=== PATIENT | male | born 1985 | race Caucasian/White ===

== ENCOUNTER 2016-05-23 07:53 | Day surgery (SDC) | payer OTHER ==
[~2016-05-23] VITALS: Ht 175.3 cm; Wt 83.9 kg
[~2016-05-23 07:53] MED LIST: ADDERALL10 M1 PO; ALEVE220 M2 PO; AMBIEN CR12.5 MG PO; APIDRA100 UNIT/1 IL; AUGMENTIN875 MG PO; AZO CRANBERRY1 EAC1 PO; CATAPRES0.1 MG PO; CHANTIX1 EACH PO; CLEOCIN300 MG PO; CLONIDINE HCL0.1 MG PO; DILAUDID2 MG PO; DILAUDID4 MG PO; GABAPENTIN600 MG PO; HUMALOG100 UNIT/1 SC; IBUPROFEN600 MG PO; INDOCIN25 MG PO; INDOMETHACIN50 MG PO; INSULIN PUMP SCCONT; LEVOFLOXACIN750 MG PO; LIPITOR5 MG PO; Levaquin PO; MOTRIN400 MG PO; NEURONTIN300 MG PO; NEURONTIN600 MG PO; NEURONTIN800 MG PO; NORCO 7.5/321 TABLET PO; NUCYNTA50 MG PO; NUCYNTA75 MG PO; OMNIPOD1 EACH SQ; OPANA ER20 MG PO; OXYCODONE HCL10 MG PO; OXYCODONE HCL15 MG PO; OXYCODONE HCL20 M1 PO; OXYCODONE HCL30 MG PO; OXYCONTIN20 MG PO; OXYMORPHONE HCL30 MG PO; PERCOCET 5/31 TABLET PO; PHENERGAN12.5 M1 PO; PROTONIX40 MG PO; RAMIPRIL1.25 MG PO; ROXICET 5-3251 EACH PO; ROXICODONE5 MG; TRAMADOL HCL50 MG PO; WELLBUTRIN SR200 MG PO; WELLBUTRIN XL150 MG PO; WELLBUTRIN XL300 MG PO; ZOFRAN ODT4 MG PO
[2016-05-23 08:38] VITALS: BP 132/88
[2016-05-23 08:43] LABS: POINT-OF-CARE METER ID UU14174212
[2016-05-23 09:13] LABS: POINT-OF-CARE METER ID UU14174212
[2016-05-23 10:51] LABS: POINT-OF-CARE METER ID UU13113675; POINT-OF-CARE USER ID 515036437
[2016-05-23 11:04] VITALS: BP 138/91
== END 2016-05-23 11:17 | disposition home or self-care (01) ==
LOC: SDC
PROVIDERS: Internal Medicine
PROC: 08B53ZZ Excision of Left Vitreous, Percutaneous Approach (ICD-10-PCS; principal; 2016-05-23)
DX: E10.3592 Type 1 diabetes mellitus with proliferative diabetic retinopathy without macular edema, left eye (principal); E78.5 Hyperlipidemia, unspecified; F17.200 Nicotine dependence, unspecified, uncomplicated; F11.21 Opioid dependence, in remission; Z82.49 Family history of ischemic heart disease and other diseases of the circulatory system; Z83.3 Family history of diabetes mellitus; Z80.6 Family history of leukemia; Z82.61 Family history of arthritis; Z88.5 Allergy status to narcotic agent; Z88.8 Allergy status to other drugs, medicaments and biological substances
CPT/HCPCS: 82948; J0330; J0690; J2250; J2405; J3010; J3300

== ENCOUNTER 2016-06-15 15:19 | Emergency (ER) | payer OTHER ==
[~2016-06-15] VITALS: Ht 175.3 cm; Wt 83.8 kg
[2016-06-15 15:34] LABS: POINT-OF-CARE METER ID UU13113800
[2016-06-15 15:58] LABS: HEMATOCRIT 43.3 % (38.0-50.0); MCH 29.2 PG (29.0-34.0); MCHC 33.9 G/DL (30.0-36.0); MCV 86.1 FL (86-99); MEAN PLAT.VOLUME 9.7 uM^3 (9.0-12.4); PLATELET COUNT 397 K/uL (156-360); RBC DIS.WIDTH-CV 12.9 % (11.8-14.6); RED BLOOD COUNT 5.03 M/uL (4.00-5.50)
[2016-06-15 16:13] LABS: CHLORIDE 109 mEq/L (99-109); POTASSIUM 3.8 mEq/L (3.7-5.4); SODIUM 139 mEq/L (136-147)
[2016-06-15 16:16] LABS: ANION GAP 8 MEQ/L (2-14)
[2016-06-15 16:17] LABS: TOTAL BILIRUBIN 0.6 mg/dL (0.0-1.0)
[2016-06-15 16:19] LABS: ALKALINE PHOSPHATASE 81 IU/L (3-129); GFR ESTIMATE (CALCULATED) > 59 mL/min/
[2016-06-15 16:20] LABS: UREA NITROGEN (BUN) 14 mg/dL (9-23)
[2016-06-15 17:09] LABS: POINT-OF-CARE METER ID UU13113800; POINT-OF-CARE USER ID 608261302
[2016-06-15 17:20] LABS: GLUCOSE 36 mg/dL (70-99)
[2016-06-15 18:07] LABS: ADD MIUA? YES; BILIRUBIN NEGATIVE; BLOOD NEGATIVE; COLOR YELLOW ((YELLOW)); GLUCOSE (STRIP) >=500; KETONES NEGATIVE; LEUKOCYTES NEGATIVE; NITRITE NEGATIVE; PROTEIN (STRIP) 100; SPECIFIC GRAVITY 1.014 (1.000-1.030); UROBILINOGEN 0.2 MG/DL (0.2-1.0)
[2016-06-15 18:18] LABS: BACTERIA NONE SEEN /HPF; EPITHELIAL CELLS RARE /HPF; MUCUS TRACE /LPF; RED BLOOD CELLS 0-5 /HPF (0-5); UCUL ADDED? NO; WHITE BLOOD CELLS 0-5 /HPF (0-5)
[2016-06-15 18:19] LABS: AMPHETAMINE NEGATIVE (500 ng/mL); BARBITURATES NEGATIVE (200 ng/mL); BENZODIAZEPINES NEGATIVE (150 ng/mL); COCAINE NEGATIVE (150 ng/mL); METHADONE NEGATIVE (200 ng/mL); METHAMPHETAMINE NEGATIVE (500 ng/mL); OPIATES (MORPHINE) NEGATIVE (100 ng/mL); OXYCODONE PRESUMPTIVE POSITIVE (100 ng/mL); PHENCYCLIDINE NEGATIVE (25 ng/mL); PROPOXYPHENE NEGATIVE (300 ng/mL); THC CANNABINOIDS NEGATIVE (50 ng/mL); TRICYCLIC ANTIDEPRESSANTS PRESUMPTIVE POSITIVE (300 ng/mL)
[2016-06-15 18:20] LABS: INTERNAL CONTROLS VALID? YES
[2016-06-15] MEDS ORDERED: ZOFRAN4 MG PO (18:30)
[2016-06-15 18:43] VITALS: BP 128/87
[2016-06-15 18:45] LABS: POINT-OF-CARE METER ID UU13113800
== END 2016-06-15 18:49 | disposition home or self-care (01) ==
LOC: RME 15:19 → EME 15:19 → RME 18:49
PROVIDERS: Physician Assistant
DX: E11.649 Type 2 diabetes mellitus with hypoglycemia without coma (principal); Z79.4 Long term (current) use of insulin; Z88.6 Allergy status to analgesic agent; F17.200 Nicotine dependence, unspecified, uncomplicated
CPT/HCPCS: 80053; 81003; 82010; 82948; 85027; 99281; 99285; J2405

== ENCOUNTER 2016-09-09 22:26 | Inpatient (IN) | payer OTHER ==
[~2016-09-09] VITALS: Ht 172.7 cm; Wt 80.2 kg
[~2016-09-09 22:26] MED LIST changes: +ZOFRAN4 MG PO
[2016-09-09 23:02] LABS: HEMATOCRIT 40.2 % (38.0-50.0); MCH 28.9 PG (29.0-34.0); MCHC 33.8 G/DL (30.0-36.0); MCV 85.4 FL (86-99); MEAN PLAT.VOLUME 9.8 uM^3 (9.0-12.4); PLATELET COUNT 342 K/uL (156-360); RBC DIS.WIDTH-CV 12.6 % (11.8-14.6); RBC DIS.WIDTH-SD 39.2 % (39-53); RED BLOOD COUNT 4.71 M/uL (4.00-5.50)
[2016-09-09 23:11] LABS: CHLORIDE 105 mEq/L (99-109); POTASSIUM 4.3 mEq/L (3.7-5.4); SODIUM 141 mEq/L (136-147)
[2016-09-09 23:13] LABS: GLUCOSE 42 mg/dL (70-99)
[2016-09-09 23:14] LABS: ANION GAP 8 MEQ/L (2-14)
[2016-09-09 23:16] LABS: GFR ESTIMATE (CALCULATED) > 59 mL/min/; SERUM ETHYL ALCOHOL < 10 mg/dL
[2016-09-09 23:17] LABS: UREA NITROGEN (BUN) 12 mg/dL (9-23)
[2016-09-09 23:57] LABS: POINT-OF-CARE METER ID UU13113702
[2016-09-10 00:05] LABS: POINT-OF-CARE METER ID UU13113702
[2016-09-10 01:40] LABS: POINT-OF-CARE METER ID UU13113702
[2016-09-10] MEDS ORDERED: ALPRAZOLAM0.25 M2 PO (02:05)
[2016-09-10] MEDS ORDERED: BUPROPION XL300 MG PO (02:06)
[2016-09-10] MEDS ORDERED: ESCITALOPRAM OX20 MG PO (02:06)
[2016-09-10] MEDS ORDERED: OXYCODONE HCL30 MG PO (02:07)
[2016-09-10 06:37] LABS: POINT-OF-CARE METER ID UU13113830
[2016-09-10 08:01] VITALS: BP 90/54
[2016-09-10 11:38] VITALS: BP 119/66
[2016-09-10 12:24] LABS: POINT-OF-CARE METER ID UU14100415
[2016-09-10 16:06] VITALS: BP 92/52
[2016-09-10 16:34] LABS: POINT-OF-CARE METER ID UU14188576
[2016-09-10 21:10] LABS: POINT-OF-CARE METER ID UU14188576; POINT-OF-CARE USER ID BHSMEW
[2016-09-10 21:51] LABS: POINT-OF-CARE METER ID UU14188576; POINT-OF-CARE USER ID BHSMEW
[2016-09-11 05:59] LABS: POINT-OF-CARE METER ID UU14188576
[2016-09-11 07:22] VITALS: BP 113/67
[2016-09-11 10:38] LABS: POINT-OF-CARE METER ID UU14188576
[2016-09-11 15:54] VITALS: BP 123/76
[2016-09-11 17:00] LABS: POINT-OF-CARE METER ID UU14188576; POINT-OF-CARE USER ID BHSMEW
[2016-09-11 20:38] LABS: POINT-OF-CARE METER ID UU14188576; POINT-OF-CARE USER ID BHSMEW
[2016-09-12 00:59] LABS: POINT-OF-CARE METER ID UU14188576; POINT-OF-CARE USER ID BHSCRC
[2016-09-12 06:25] LABS: POINT-OF-CARE METER ID UU14188576
[2016-09-12 07:35] VITALS: BP 107/61
[2016-09-12 09:46] LABS: POINT-OF-CARE METER ID UU14188576; POINT-OF-CARE USER ID BHSCRC
[2016-09-12 10:18] LABS: POINT-OF-CARE METER ID UU13113702
[2016-09-12 15:14] VITALS: BP 121/73
[2016-09-12 17:24] LABS: POINT-OF-CARE METER ID UU14188576
[2016-09-12 20:58] LABS: POINT-OF-CARE METER ID UU14188576
[2016-09-13 05:45] LABS: POINT-OF-CARE METER ID UU14188576; POINT-OF-CARE USER ID BHSMEW
[2016-09-13 07:32] VITALS: BP 105/55
[2016-09-13 11:06] LABS: POINT-OF-CARE METER ID UU14188576; POINT-OF-CARE USER ID BHSLRM
[2016-09-13 15:55] VITALS: BP 96/51
[2016-09-13 16:42] LABS: POINT-OF-CARE METER ID UU14188576
[2016-09-13 17:06] LABS: POINT-OF-CARE METER ID UU14188576
[2016-09-13 19:56] VITALS: BP 109/59
[2016-09-13 20:44] LABS: POINT-OF-CARE METER ID UU14188576; POINT-OF-CARE USER ID BHSSMG
[2016-09-14 01:06] LABS: POINT-OF-CARE METER ID UU14188576; POINT-OF-CARE USER ID BHSSMG
[2016-09-14 06:06] LABS: POINT-OF-CARE METER ID UU14188576; POINT-OF-CARE USER ID BHSSMG
[2016-09-14 07:31] VITALS: BP 105/55
[2016-09-14 09:45] LABS: POINT-OF-CARE METER ID UU14188576
[2016-09-14 10:56] LABS: POINT-OF-CARE METER ID UU14188576
[2016-09-14 12:28] LABS: POINT-OF-CARE METER ID UU14188576; POINT-OF-CARE USER ID BHSTSA
[2016-09-14 15:52] VITALS: BP 110/58
[2016-09-14 16:40] LABS: POINT-OF-CARE METER ID UU14188576; POINT-OF-CARE USER ID BHSMEW
[2016-09-14 17:14] LABS: POINT-OF-CARE METER ID UU14188576; POINT-OF-CARE USER ID BHSLRM
[2016-09-14 19:33] LABS: POINT-OF-CARE METER ID UU14188576; POINT-OF-CARE USER ID BHSMEW
[2016-09-14 20:21] LABS: POINT-OF-CARE METER ID UU14188576; POINT-OF-CARE USER ID BHSMEW
[2016-09-14 22:23] LABS: POINT-OF-CARE METER ID UU14188576; POINT-OF-CARE USER ID BHSMEW
[2016-09-15 06:21] LABS: POINT-OF-CARE METER ID UU14188576
[2016-09-15 07:56] VITALS: BP 117/65
[2016-09-15] MEDS ORDERED: VENLAFAXINE HC150 M1 PO (09:14)
[2016-09-15] MEDS ORDERED: PRAZOSIN HCL1 MG PO (09:14)
[2016-09-15 10:18] LABS: Estimated Average Glucose 235 mg/dL (70-123); HEMOGLOBIN A1c (GLYCOHEMOGLOB) 9.8 % HGB (Below 5.7)
[2016-09-15 14:26] LABS: POINT-OF-CARE METER ID UU14188576; POINT-OF-CARE USER ID BHSTSA
[2016-09-15 14:53] LABS: POINT-OF-CARE METER ID UU14188576; POINT-OF-CARE USER ID BHSLRM
[2016-09-15 14:53] LABS: POINT-OF-CARE METER ID UU14188576; POINT-OF-CARE USER ID BHSTSA
== END 2016-09-15 14:24 | disposition home or self-care (01) | DRG 880 ==
LOC: EME → EDBD 22:26 → EME 22:26 → EDOF 09-10 01:21 → 1WEST 09-10 01:21
PROVIDERS: Emergency Medicine; Nurse Practitioner Adult Health; Psychiatry & Neurology Psychiatry
DX: F41.8 Other specified anxiety disorders (principal); E10.649 Type 1 diabetes mellitus with hypoglycemia without coma; E10.319 Type 1 diabetes mellitus with unspecified diabetic retinopathy without macular edema; F11.20 Opioid dependence, uncomplicated; G40.909 Epilepsy, unspecified, not intractable, without status epilepticus; R45.851 Suicidal ideations; F17.210 Nicotine dependence, cigarettes, uncomplicated; F41.0 Panic disorder [episodic paroxysmal anxiety]; F43.10 Post-traumatic stress disorder, unspecified; G89.4 Chronic pain syndrome; H54.42 Blindness, left eye, normal vision right eye; S09.90XS Unspecified injury of head, sequela; N20.0 Calculus of kidney; S51.812A Laceration without foreign body of left forearm, initial encounter; X76.XXXA Intentional self-harm by smoke, fire and flames, initial encounter; Z79.4 Long term (current) use of insulin; Z87.442 Personal history of urinary calculi; Z91.19 Patient's noncompliance with other medical treatment and regimen; Z96.41 Presence of insulin pump (external) (internal); M79.641 Pain in right hand; M25.569 Pain in unspecified knee; R45.87 Impulsiveness; R73.9 Hyperglycemia, unspecified
CPT/HCPCS: 73130; 80048; 82948; 83036; 85027; 90837; 97150 GO; 97166 GO; 99281; 99285; G0480; J1815; Q0177

== ENCOUNTER 2016-10-06 14:18 | Emergency (ER) | payer OTHER ==
[~2016-10-06] VITALS: Ht 172.7 cm; Wt 81.7 kg
[~2016-10-06 14:18] MED LIST changes: +ALPRAZOLAM0.25 M2 PO; +BUPROPION XL300 MG PO; +ESCITALOPRAM OX20 MG PO; +PRAZOSIN HCL1 MG PO; +VENLAFAXINE HC150 M1 PO
[2016-10-06 15:41] LABS: EOSINOPHIL (%) 2.5 % (0-5); EOSINOPHIL COUNT 0.2 K/uL (0-0.3); HEMATOCRIT 38.4 % (38.0-50.0); IMMATURE GRANULOCYTE (%) 0.1 % (0.0-0.7); MCH 28.5 PG (29.0-34.0); MCHC 33.3 G/DL (30.0-36.0); MCV 85.5 FL (86-99); MEAN PLAT.VOLUME 10.7 uM^3 (9.0-12.4); MONOCYTE (%) 3.6 % (3-12); MONOCYTE COUNT 0.3 K/uL (0-0.8); NEUTROPHIL (%) 66.4 % (45-76); PLATELET COUNT 292 K/uL (156-360); RBC DIS.WIDTH-CV 12.4 % (11.8-14.6); RED BLOOD COUNT 4.49 M/uL (4.00-5.50); WHITE BLOOD COUNT 7.5 K/uL (4.1-10.2)
[2016-10-06 15:52] LABS: CHLORIDE 97 mEq/L (99-109); POTASSIUM 4.7 mEq/L (3.7-5.4); SODIUM 132 mEq/L (136-147)
[2016-10-06 15:55] LABS: ANION GAP 10 MEQ/L (2-14)
[2016-10-06 15:56] LABS: TOTAL BILIRUBIN 0.7 mg/dL (0.0-1.0)
[2016-10-06 15:57] LABS: ALKALINE PHOSPHATASE 85 IU/L (3-129); SERUM ETHYL ALCOHOL < 10 mg/dL
[2016-10-06 15:58] LABS: GFR ESTIMATE (CALCULATED) > 59 mL/min/
[2016-10-06 15:59] LABS: UREA NITROGEN (BUN) 14 mg/dL (9-23)
[2016-10-06 16:03] LABS: GLUCOSE 720 mg/dL (70-99)
[2016-10-06 17:26] LABS: POINT-OF-CARE METER ID UU14100415
[2016-10-06 18:23] LABS: POINT-OF-CARE METER ID UU14100415
[2016-10-06 18:33] LABS: BACTERIA RARE /HPF; EPITHELIAL CELLS NONE SEEN /HPF; MUCUS TRACE /LPF; RED BLOOD CELLS 0-5 /HPF (0-5); WHITE BLOOD CELLS 0-5 /HPF (0-5)
[2016-10-06 18:42] LABS: ADD MEDTOX COMMENT Y; AMPHETAMINE NEGATIVE (500 ng/mL); BARBITURATES NEGATIVE (200 ng/mL); BENZODIAZEPINES PRESUMPTIVE POSITIVE (150 ng/mL); COCAINE NEGATIVE (150 ng/mL); INTERNAL CONTROLS VALID? YES; METHADONE NEGATIVE (200 ng/mL); METHAMPHETAMINE NEGATIVE (500 ng/mL); OPIATES (MORPHINE) NEGATIVE (100 ng/mL); OXYCODONE PRESUMPTIVE POSITIVE (100 ng/mL); PHENCYCLIDINE NEGATIVE (25 ng/mL); PROPOXYPHENE NEGATIVE (300 ng/mL); THC CANNABINOIDS NEGATIVE (50 ng/mL); TRICYCLIC ANTIDEPRESSANTS PRESUMPTIVE POSITIVE (300 ng/mL)
[2016-10-06 19:19] LABS: BENZODIAZEPINES, URINE SCREEN POSITIVE (200 ng/mL)
[2016-10-06] MEDS ORDERED: VOLTAREN50 MG PO (22:39)
[2016-10-06] MEDS ORDERED: INSULIN PUMP SCCONT (22:39)
[2016-10-06] MEDS ORDERED: SEROQUEL100 MG PO (22:41)
[2016-10-07 00:30] LABS: POINT-OF-CARE METER ID UU14100415
[2016-10-07 08:03] LABS: POINT-OF-CARE METER ID UU14100415
[2016-10-07 08:09] VITALS: BP 125/86
[2016-10-07 10:33] LABS: POINT-OF-CARE METER ID UU14100415; POINT-OF-CARE USER ID 515033160
[2016-10-07 10:33] LABS: POINT-OF-CARE METER ID UU14100415
[2016-10-07 10:33] LABS: POINT-OF-CARE METER ID UU13113778
[2016-10-07 10:33] LABS: POINT-OF-CARE METER ID UU14100415
== END 2016-10-07 08:10 ==
LOC: EME 14:18
PROVIDERS: Emergency Medicine
DX: E10.65 Type 1 diabetes mellitus with hyperglycemia (principal); Z79.4 Long term (current) use of insulin; Z96.41 Presence of insulin pump (external) (internal); F33.2 Major depressive disorder, recurrent severe without psychotic features; F41.9 Anxiety disorder, unspecified; R45.851 Suicidal ideations; R45.850 Homicidal ideations; F43.10 Post-traumatic stress disorder, unspecified; Z87.442 Personal history of urinary calculi; F17.200 Nicotine dependence, unspecified, uncomplicated
CPT/HCPCS: 80053; 81015; 82010; 82948; 84999; 85025; 90837; 99281; 99283; G0480; J2060; J2405; J7030

== ENCOUNTER 2016-11-02 16:49 | Emergency (ER) | payer OTHER ==
[~2016-11-02] VITALS: Ht 172.7 cm; Wt 84.1 kg
[~2016-11-02 16:49] MED LIST changes: +SEROQUEL100 MG PO; +VOLTAREN50 MG PO
[2016-11-02 17:02] LABS: POINT-OF-CARE METER ID UU13113702
[2016-11-02 17:45] LABS: HEMATOCRIT 35.4 % (38.0-50.0); MCHC 33.6 G/DL (30.0-36.0); MCV 86.3 FL (86-99); MEAN PLAT.VOLUME 9.7 uM^3 (9.0-12.4); PLATELET COUNT 291 K/uL (156-360); RBC DIS.WIDTH-SD 40.8 % (39-53); WHITE BLOOD COUNT 15.3 K/uL (4.1-10.2)
[2016-11-02 17:52] LABS: CHLORIDE 107 mEq/L (99-109); POTASSIUM 3.3 mEq/L (3.7-5.4); SODIUM 143 mEq/L (136-147)
[2016-11-02 17:53] LABS: GLUCOSE 264 mg/dL (70-99)
[2016-11-02 17:55] LABS: ANION GAP 10 MEQ/L (2-14)
[2016-11-02 17:57] LABS: GFR ESTIMATE (CALCULATED) > 59 mL/min/
[2016-11-02 17:58] LABS: UREA NITROGEN (BUN) 11 mg/dL (9-23)
[2016-11-02 18:18] LABS: POINT-OF-CARE METER ID UU13113702
[2016-11-02 20:20] VITALS: BP 124/95
== END 2016-11-02 20:21 | disposition home or self-care (01) ==
LOC: EME 16:49
PROVIDERS: Emergency Medicine
DX: R10.9 Unspecified abdominal pain (principal); R07.9 Chest pain, unspecified; E11.9 Type 2 diabetes mellitus without complications; Z79.4 Long term (current) use of insulin; Z72.0 Tobacco use; Z87.442 Personal history of urinary calculi
CPT/HCPCS: 71020; 74177; 80048; 82948; 85027; 99281; 99285; J2270; J7030

== ENCOUNTER 2016-11-07 04:39 | Emergency (ER) | payer OTHER ==
[~2016-11-07] VITALS: Ht 175.3 cm; Wt 82.3 kg
[2016-11-07] MEDS ORDERED: LIDODERM 5% P1 PATCH TD (05:09)
[2016-11-07 05:24] LABS: POINT-OF-CARE METER ID UU13113702
[2016-11-07 06:32] VITALS: BP 120/87
== END 2016-11-07 06:33 | disposition home or self-care (01) ==
LOC: EME 04:39
DX: R07.81 Pleurodynia (principal); S22.32XD Fracture of one rib, left side, subsequent encounter for fracture with routine healing; W01.198D Fall on same level from slipping, tripping and stumbling with subsequent striking against other object, subsequent encounter; R06.2 Wheezing; G89.29 Other chronic pain; M25.561 Pain in right knee; Z79.891 Long term (current) use of opiate analgesic; E11.9 Type 2 diabetes mellitus without complications; Z79.4 Long term (current) use of insulin; Z96.41 Presence of insulin pump (external) (internal); F17.200 Nicotine dependence, unspecified, uncomplicated
CPT/HCPCS: 71020; 82948; 99281; 99284

== ENCOUNTER 2016-11-16 18:59 | Emergency (ER) | payer OTHER ==
[~2016-11-16] VITALS: Ht 180.3 cm; Wt 77.6 kg
[~2016-11-16 18:59] MED LIST changes: +LIDODERM 5% P1 PATCH TD
[2016-11-16 19:15] LABS: POINT-OF-CARE METER ID UU13113747
[2016-11-16 19:42] LABS: EOSINOPHIL (%) 1.5 % (0-5); EOSINOPHIL COUNT 0.2 K/uL (0-0.3); HEMATOCRIT 39.3 % (38.0-50.0); IMMATURE GRANULOCYTE (%) 0.3 % (0.0-0.7); INSTRUMENT ABS NEUTROPHIL CT 5.2 K/uL; LYMPHOCYTE COUNT 4.4 K/uL (1.0-2.8); MCH 28.9 PG (29.0-34.0); MCHC 33.3 G/DL (30.0-36.0); MCV 86.8 FL (86-99); MEAN PLAT.VOLUME 9.7 uM^3 (9.0-12.4); MONOCYTE (%) 9.1 % (3-12); NEUTROPHIL (%) 48.2 % (45-76); NEUTROPHIL COUNT 5.2 K/uL (1.8-6.4); PLATELET COUNT 302 K/uL (156-360); RBC DIS.WIDTH-CV 13.2 % (11.8-14.6); RED BLOOD COUNT 4.53 M/uL (4.00-5.50); WHITE BLOOD COUNT 10.7 K/uL (4.1-10.2)
[2016-11-16 19:48] LABS: ADD MIUA? NO; BILIRUBIN NEGATIVE; BLOOD NEGATIVE; COLOR YELLOW ((YELLOW)); GLUCOSE (STRIP) >=500; KETONES 5; LEUKOCYTES NEGATIVE; NITRITE NEGATIVE; PROTEIN (STRIP) NEGATIVE; SPECIFIC GRAVITY 1.022 (1.000-1.030); UROBILINOGEN 0.2 MG/DL (0.2-1.0)
[2016-11-16 19:50] LABS: CHLORIDE 109 mEq/L (99-109); POTASSIUM 3.3 mEq/L (3.7-5.4); SODIUM 142 mEq/L (136-147)
[2016-11-16 19:52] LABS: GLUCOSE 76 mg/dL (70-99)
[2016-11-16 19:53] LABS: ANION GAP 10 MEQ/L (2-14)
[2016-11-16 19:55] LABS: SERUM ETHYL ALCOHOL < 10 mg/dL
[2016-11-16 19:56] LABS: GFR ESTIMATE (CALCULATED) > 59 mL/min/
[2016-11-16 19:57] LABS: PHENCYCLIDINE NEGATIVE (25 ng/mL); THC CANNABINOIDS NEGATIVE (50 ng/mL)
[2016-11-16 19:58] LABS: ADD MEDTOX COMMENT Y; AMPHETAMINE NEGATIVE (500 ng/mL); BARBITURATES NEGATIVE (200 ng/mL); BENZODIAZEPINES NEGATIVE (150 ng/mL); COCAINE NEGATIVE (150 ng/mL); INTERNAL CONTROLS VALID? YES; METHADONE NEGATIVE (200 ng/mL); METHAMPHETAMINE NEGATIVE (500 ng/mL); OPIATES (MORPHINE) PRESUMPTIVE POSITIVE (100 ng/mL); OXYCODONE PRESUMPTIVE POSITIVE (100 ng/mL); PROPOXYPHENE NEGATIVE (300 ng/mL); TRICYCLIC ANTIDEPRESSANTS NEGATIVE (300 ng/mL)
[2016-11-16 19:58] LABS: UREA NITROGEN (BUN) 15 mg/dL (9-23)
[2016-11-16 19:59] LABS: SALICYLATE < 5.0 MG/DL (15-30)
[2016-11-16 20:00] LABS: POINT-OF-CARE METER ID UU13113747
[2016-11-16 23:14] LABS: POINT-OF-CARE METER ID UU13113747
[2016-11-17 01:52] LABS: POINT-OF-CARE METER ID UU13113747
[2016-11-17 05:56] LABS: POINT-OF-CARE METER ID UU13113747
[2016-11-17 07:04] LABS: POINT-OF-CARE METER ID UU13113747
[2016-11-17 07:16] VITALS: BP 102/63
[2016-11-17 15:24] LABS: POINT-OF-CARE METER ID UU13113747
== END 2016-11-17 08:08 | disposition home or self-care (01) ==
LOC: EME → EDBD 18:59 → EME 11-17 08:08
PROVIDERS: Emergency Medicine
DX: T38.3X2A Poisoning by insulin and oral hypoglycemic [antidiabetic] drugs, intentional self-harm, initial encounter (principal); R41.82 Altered mental status, unspecified; E11.649 Type 2 diabetes mellitus with hypoglycemia without coma; Z96.41 Presence of insulin pump (external) (internal); Z79.4 Long term (current) use of insulin; G89.4 Chronic pain syndrome; F33.2 Major depressive disorder, recurrent severe without psychotic features; F63.81 Intermittent explosive disorder; F43.10 Post-traumatic stress disorder, unspecified; R56.9 Unspecified convulsions; F17.200 Nicotine dependence, unspecified, uncomplicated; F19.10 Other psychoactive substance abuse, uncomplicated; Z56.0 Unemployment, unspecified
CPT/HCPCS: 80048; 81003; 82948; 83930; 84999; 85025; 90839; 93005; 99281; 99285; G0480; J1630; J2060; J2250

== ENCOUNTER 2017-01-24 11:56 | Emergency (ER) | payer OTHER ==
[~2017-01-24] VITALS: Ht 172.7 cm; Wt 81.3 kg
[2017-01-24 13:03] LABS: ADD MIUA? NO; BILIRUBIN NEGATIVE; BLOOD NEGATIVE; COLOR YELLOW ((YELLOW)); GLUCOSE (STRIP) >=500; KETONES NEGATIVE; LEUKOCYTES NEGATIVE; NITRITE NEGATIVE; PROTEIN (STRIP) 30; UROBILINOGEN 0.2 MG/DL (0.2-1.0)
[2017-01-24 13:13] LABS: ADD MEDTOX COMMENT Y; AMPHETAMINE NEGATIVE (500 ng/mL); BARBITURATES NEGATIVE (200 ng/mL); BENZODIAZEPINES NEGATIVE (150 ng/mL); COCAINE NEGATIVE (150 ng/mL); INTERNAL CONTROLS VALID? YES; METHADONE NEGATIVE (200 ng/mL); METHAMPHETAMINE NEGATIVE (500 ng/mL); OPIATES (MORPHINE) NEGATIVE (100 ng/mL); OXYCODONE PRESUMPTIVE POSITIVE (100 ng/mL); PHENCYCLIDINE NEGATIVE (25 ng/mL); PROPOXYPHENE NEGATIVE (300 ng/mL); THC CANNABINOIDS PRESUMPTIVE POSITIVE (50 ng/mL); TRICYCLIC ANTIDEPRESSANTS PRESUMPTIVE POSITIVE (300 ng/mL)
[2017-01-24 13:30] LABS: EOSINOPHIL (%) 7.8 % (0-5); EOSINOPHIL COUNT 0.7 K/uL (0-0.3); HEMATOCRIT 36.5 % (38.0-50.0); IMMATURE GRANULOCYTE (%) 0.2 % (0.0-0.7); INSTRUMENT ABS NEUTROPHIL CT 3.9 K/uL; LYMPHOCYTE COUNT 3.3 K/uL (1.0-2.8); MCH 29.3 PG (29.0-34.0); MCV 86.3 FL (86-99); MEAN PLAT.VOLUME 9.7 uM^3 (9.0-12.4); MONOCYTE (%) 5.4 % (3-12); MONOCYTE COUNT 0.5 K/uL (0-0.8); NEUTROPHIL (%) 46.5 % (45-76); NEUTROPHIL COUNT 3.9 K/uL (1.8-6.4); PLATELET COUNT 258 K/uL (156-360); RBC DIS.WIDTH-CV 12.9 % (11.8-14.6); RBC DIS.WIDTH-SD 40.6 % (39-53); RED BLOOD COUNT 4.23 M/uL (4.00-5.50); WHITE BLOOD COUNT 8.3 K/uL (4.1-10.2)
[2017-01-24 13:35] LABS: CARBON DIOXIDE (BICARBONATE) 28.6 MEQ/L (20-31)
[2017-01-24 13:41] LABS: CHLORIDE 99 mEq/L (99-109); POTASSIUM 4.1 mEq/L (3.7-5.4); SODIUM 131 mEq/L (136-147)
[2017-01-24 13:44] LABS: ANION GAP 7 MEQ/L (2-14)
[2017-01-24 13:46] LABS: GFR ESTIMATE (CALCULATED) > 59 mL/min/; SERUM ETHYL ALCOHOL < 10 mg/dL
[2017-01-24 13:47] LABS: UREA NITROGEN (BUN) 14 mg/dL (9-23)
[2017-01-24 13:48] LABS: GLUCOSE 463 mg/dL (70-99)
[2017-01-24 14:37] LABS: POINT-OF-CARE METER ID UU13113702
[2017-01-24 15:52] LABS: POINT-OF-CARE METER ID UU13113702
[2017-01-24 16:15] LABS: POINT-OF-CARE METER ID UU13113702
[2017-01-24 19:18] LABS: POINT-OF-CARE METER ID UU13113702
[2017-01-24 21:41] LABS: POINT-OF-CARE METER ID UU13113702
[2017-01-24 22:16] LABS: POINT-OF-CARE METER ID UU13113702
[2017-01-25 01:13] LABS: POINT-OF-CARE METER ID UU13113702
[2017-01-25] MEDS ORDERED: REMERON30 M2 PO (02:58)
[2017-01-25 03:15] VITALS: BP 115/86
== END 2017-01-25 03:35 | disposition home or self-care (01) ==
LOC: EME 11:56
PROVIDERS: Emergency Medicine
PROC: 2W38X1Z Immobilization of Right Upper Extremity using Splint (ICD-10-PCS; principal; 2017-01-24)
DX: S62.354A Nondisplaced fracture of shaft of fourth metacarpal bone, right hand, initial encounter for closed fracture (principal); S62.352A Nondisplaced fracture of shaft of third metacarpal bone, right hand, initial encounter for closed fracture; S62.356A Nondisplaced fracture of shaft of fifth metacarpal bone, right hand, initial encounter for closed fracture; W22.8XXA Striking against or struck by other objects, initial encounter; F33.2 Major depressive disorder, recurrent severe without psychotic features; F63.81 Intermittent explosive disorder; F43.10 Post-traumatic stress disorder, unspecified; E11.65 Type 2 diabetes mellitus with hyperglycemia; T38.3X6A Underdosing of insulin and oral hypoglycemic [antidiabetic] drugs, initial encounter; Z91.128 Patient's intentional underdosing of medication regimen for other reason; Z79.4 Long term (current) use of insulin; F12.90 Cannabis use, unspecified, uncomplicated; Z88.6 Allergy status to analgesic agent; F17.200 Nicotine dependence, unspecified, uncomplicated
CPT/HCPCS: 73130; 80048; 81003; 82803; 82948; 84999; 85025; 90839; 99281; 99285; G0480; J1630; J2060; J7030

== ENCOUNTER 2017-02-14 05:01 | Emergency (ER) | payer OTHER ==
[~2017-02-14] VITALS: Ht 175.3 cm; Wt 75.0 kg
[~2017-02-14 05:01] MED LIST changes: +REMERON30 M2 PO
[2017-02-14 05:42] LABS: POINT-OF-CARE METER ID UU13113702
[2017-02-14 05:55] LABS: EOSINOPHIL (%) 3.6 % (0-5); EOSINOPHIL COUNT 0.4 K/uL (0-0.3); HEMATOCRIT 39.7 % (38.0-50.0); IMMATURE GRANULOCYTE (%) 0.3 % (0.0-0.7); LYMPHOCYTE COUNT 3.5 K/uL (1.0-2.8); MCH 29.6 PG (29.0-34.0); MCV 87.1 FL (86-99); MEAN PLAT.VOLUME 9.5 uM^3 (9.0-12.4); MONOCYTE (%) 9.3 % (3-12); MONOCYTE COUNT 1.1 K/uL (0-0.8); NEUTROPHIL (%) 57.8 % (45-76); RBC DIS.WIDTH-CV 12.8 % (11.8-14.6); RBC DIS.WIDTH-SD 40.6 % (39-53); RED BLOOD COUNT 4.56 M/uL (4.00-5.50); WHITE BLOOD COUNT 12.1 K/uL (4.1-10.2)
[2017-02-14 05:56] LABS: PLATELET COUNT 394 K/uL (156-360)
[2017-02-14 06:02] LABS: CHLORIDE 100 mEq/L (99-109); POTASSIUM 4.1 mEq/L (3.7-5.4); SODIUM 139 mEq/L (136-147)
[2017-02-14 06:04] LABS: GLUCOSE 63 mg/dL (70-99)
[2017-02-14 06:06] LABS: ANION GAP 13 MEQ/L (2-14)
[2017-02-14 06:08] LABS: GFR ESTIMATE (CALCULATED) > 59 mL/min/
[2017-02-14 06:09] LABS: UREA NITROGEN (BUN) 19 mg/dL (9-23)
[2017-02-14 07:07] LABS: POINT-OF-CARE METER ID UU13113747
[2017-02-14 08:08] VITALS: BP 148/87
== END 2017-02-14 08:09 | disposition home or self-care (01) ==
LOC: EME 05:01
PROVIDERS: Emergency Medicine
DX: H40.212 Acute angle-closure glaucoma, left eye (principal); E11.9 Type 2 diabetes mellitus without complications; Z79.4 Long term (current) use of insulin; Z96.41 Presence of insulin pump (external) (internal); F17.200 Nicotine dependence, unspecified, uncomplicated
CPT/HCPCS: 80048; 82948; 85025; 99281; 99285; J1120; J2270; J2405; J3010; J7030

== ENCOUNTER 2017-02-19 20:06 | Emergency (ER) | payer OTHER ==
[~2017-02-19] VITALS: Ht 175.3 cm; Wt 81.1 kg
[2017-02-19 20:58] LABS: HEMATOCRIT 37.1 % (38.0-50.0); MCH 29.6 PG (29.0-34.0); MCHC 34.2 G/DL (30.0-36.0); MCV 86.5 FL (86-99); MEAN PLAT.VOLUME 9.3 uM^3 (9.0-12.4); PLATELET COUNT 346 K/uL (156-360); RBC DIS.WIDTH-CV 12.5 % (11.8-14.6); RBC DIS.WIDTH-SD 39.3 % (39-53); RED BLOOD COUNT 4.29 M/uL (4.00-5.50); WHITE BLOOD COUNT 7.9 K/uL (4.1-10.2)
[2017-02-19 21:09] LABS: CHLORIDE 92 mEq/L (99-109); POTASSIUM 4.5 mEq/L (3.7-5.4); SODIUM 133 mEq/L (136-147)
[2017-02-19 21:11] LABS: GLUCOSE 323 mg/dL (70-99)
[2017-02-19 21:13] LABS: ANION GAP 8 MEQ/L (2-14)
[2017-02-19 21:14] LABS: SERUM ETHYL ALCOHOL < 10 mg/dL
[2017-02-19 21:15] LABS: GFR ESTIMATE (CALCULATED) > 59 mL/min/ (58.99-99999)
[2017-02-19 21:16] LABS: UREA NITROGEN (BUN) 17 mg/dL (9-23)
[2017-02-20] MEDS ORDERED: TRAZODONE HCL50 MG PO (01:06)
[2017-02-20] MEDS ORDERED: ZOFRAN4 MG PO (01:06)
[2017-02-20] MEDS ORDERED: KEFLEX500 MG PO (01:07)
[2017-02-20 01:33] VITALS: BP 151/92
[2017-02-20 12:12] LABS: POINT-OF-CARE METER ID UU14100415
[2017-02-20 12:12] LABS: POINT-OF-CARE METER ID UU14100415
== END 2017-02-20 02:06 | disposition home or self-care (01) ==
LOC: EME 20:06
PROVIDERS: Emergency Medicine
DX: F11.23 Opioid dependence with withdrawal (principal); F32.9 Major depressive disorder, single episode, unspecified; S61.214D Laceration without foreign body of right ring finger without damage to nail, subsequent encounter; W25.XXXD Contact with sharp glass, subsequent encounter; F43.10 Post-traumatic stress disorder, unspecified; E11.9 Type 2 diabetes mellitus without complications; Z96.41 Presence of insulin pump (external) (internal); Z79.4 Long term (current) use of insulin; F17.200 Nicotine dependence, unspecified, uncomplicated
CPT/HCPCS: 73130; 80048; 82948; 85027; 90839; 99281; 99285; G0480

== ENCOUNTER 2017-02-21 21:13 | Emergency (ER) | payer OTHER ==
[~2017-02-21] VITALS: Ht 172.7 cm; Wt 81.2 kg
[~2017-02-21 21:13] MED LIST changes: +KEFLEX500 MG PO; +TRAZODONE HCL50 MG PO
[2017-02-21 22:22] LABS: EOSINOPHIL (%) 2.9 % (0-5); EOSINOPHIL COUNT 0.4 K/uL (0-0.3); HEMATOCRIT 36.3 % (38.0-50.0); IMMATURE GRANULOCYTE (%) 0.3 % (0.0-0.7); IMMATURE GRANULOCYTE COUNT 0.1 K/uL; INSTRUMENT ABS NEUTROPHIL CT 11.2 K/uL; MCH 29.7 PG (29.0-34.0); MCHC 33.3 G/DL (30.0-36.0); MCV 89.2 FL (86-99); MONOCYTE (%) 6.9 % (3-12); NEUTROPHIL (%) 75.8 % (45-76); NEUTROPHIL COUNT 11.2 K/uL (1.8-6.4); PLATELET COUNT 370 K/uL (156-360); RBC DIS.WIDTH-CV 12.6 % (11.8-14.6); RBC DIS.WIDTH-SD 40.9 % (39-53); RED BLOOD COUNT 4.07 M/uL (4.00-5.50); WHITE BLOOD COUNT 14.8 K/uL (4.1-10.2)
[2017-02-21 22:32] LABS: CHLORIDE 90 mEq/L (99-109); SODIUM 131 mEq/L (136-147)
[2017-02-21 22:35] LABS: ANION GAP 19 MEQ/L (2-14)
[2017-02-21 22:38] LABS: UREA NITROGEN (BUN) 25 mg/dL (9-23)
[2017-02-21 22:41] LABS: GFR ESTIMATE (CALCULATED) 50 mL/min/ (58.99-99999); GLUCOSE 791 mg/dL (70-99); POTASSIUM 5.7 mEq/L (3.7-5.4)
[2017-02-21 23:07] LABS: CARBON DIOXIDE (BICARBONATE) 25.6 MEQ/L (20-31)
[2017-02-22 00:42] LABS: ERTH.SED.RATE 33 MM/HR (0-15)
[2017-02-22 01:13] LABS: POINT-OF-CARE METER ID UU13113702
[2017-02-22 02:48] VITALS: BP 111/96
== END 2017-02-22 02:55 | disposition home or self-care (01) ==
LOC: EME 21:13
PROVIDERS: Physician Assistant
DX: S92.411A Displaced fracture of proximal phalanx of right great toe, initial encounter for closed fracture (principal); E11.65 Type 2 diabetes mellitus with hyperglycemia; S83.91XA Sprain of unspecified site of right knee, initial encounter; W01.0XXA Fall on same level from slipping, tripping and stumbling without subsequent striking against object, initial encounter; Y93.02 Activity, running; Z79.4 Long term (current) use of insulin; F43.10 Post-traumatic stress disorder, unspecified; Z88.5 Allergy status to narcotic agent; Z88.6 Allergy status to analgesic agent
CPT/HCPCS: 71010; 73560; 73660; 80048; 81003; 82010; 82803; 82948; 85025; 85651; 86140; 99281; 99285; J7030

== ENCOUNTER 2017-03-05 19:12 | Emergency (ER) | payer OTHER ==
[~2017-03-05] VITALS: Ht 175.3 cm; Wt 78.4 kg
[2017-03-05] MEDS ORDERED: DOXYCYCLINE HY100 MG PO (21:52)
[2017-03-05 22:02] VITALS: BP 128/90
[2017-03-06] MEDS ORDERED: TYLENOL EXTRA500 MG PO (09:32)
== END 2017-03-05 22:00 | disposition home or self-care (01) ==
LOC: EXP 19:12 → EME 19:12 → EXP 22:00
PROC: 0H90XZZ Drainage of Scalp Skin, External Approach (ICD-10-PCS; principal; 2017-03-05)
DX: L02.811 Cutaneous abscess of head [any part, except face] (principal); E11.9 Type 2 diabetes mellitus without complications; Z79.4 Long term (current) use of insulin; Z96.41 Presence of insulin pump (external) (internal); Z72.0 Tobacco use; Z88.5 Allergy status to narcotic agent; Z88.6 Allergy status to analgesic agent; Z88.8 Allergy status to other drugs, medicaments and biological substances; Z91.048 Other nonmedicinal substance allergy status
CPT/HCPCS: 99281; 99284; J2060

== ENCOUNTER 2017-03-06 05:45 | Emergency (ER) | payer OTHER ==
[~2017-03-06] VITALS: Ht 167.6 cm; Wt 76.0 kg
[~2017-03-06 05:45] MED LIST changes: +DOXYCYCLINE HY100 MG PO
[2017-03-06] MEDS ORDERED: TYLENOL EXTRA500 MG PO (09:32)
[2017-03-06 09:40] VITALS: BP 113/77
== END 2017-03-06 09:40 | disposition home or self-care (01) ==
LOC: EME → EDBD 05:45 → TRA 05:45 → EME 05:45 → TRA 09:40
DX: S09.90XA Unspecified injury of head, initial encounter (principal); S16.1XXA Strain of muscle, fascia and tendon at neck level, initial encounter; S00.01XA Abrasion of scalp, initial encounter; E10.319 Type 1 diabetes mellitus with unspecified diabetic retinopathy without macular edema; R45.4 Irritability and anger; F17.210 Nicotine dependence, cigarettes, uncomplicated; R56.9 Unspecified convulsions; W00.0XXA Fall on same level due to ice and snow, initial encounter; Z79.4 Long term (current) use of insulin; Z88.6 Allergy status to analgesic agent; Z88.5 Allergy status to narcotic agent; Z88.8 Allergy status to other drugs, medicaments and biological substances; Z91.048 Other nonmedicinal substance allergy status
CPT/HCPCS: 70450; 72125; 99281; 99284; J2060

== ENCOUNTER 2017-03-19 07:50 | Emergency (ER) | payer OTHER ==
[~2017-03-19] VITALS: Ht 175.3 cm; Wt 80.9 kg
[~2017-03-19 07:50] MED LIST changes: +TYLENOL EXTRA500 MG PO
[2017-03-19 10:20] VITALS: BP 155/98
== END 2017-03-19 10:20 | disposition home or self-care (01) ==
LOC: EME 07:50
PROC: 0HQGXZZ Repair Left Hand Skin, External Approach (ICD-10-PCS; principal; 2017-03-19)
PROC: 3E0234Z Introduction of Serum, Toxoid and Vaccine into Muscle, Percutaneous Approach (ICD-10-PCS; principal; 2017-03-19)
DX: S61.211A Laceration without foreign body of left index finger without damage to nail, initial encounter (principal); W45.0XXA Nail entering through skin, initial encounter; Z23 Encounter for immunization; E11.9 Type 2 diabetes mellitus without complications; Z79.4 Long term (current) use of insulin; F17.200 Nicotine dependence, unspecified, uncomplicated
CPT/HCPCS: 82948; 99281; 99284; S0020

== ENCOUNTER 2017-04-01 11:06 | Emergency (ER) | payer OTHER ==
[~2017-04-01] VITALS: Ht 175.3 cm; Wt 75.0 kg
[2017-04-01 18:41] VITALS: BP 120/86
== END 2017-04-01 18:41 | disposition home or self-care (01) ==
LOC: EME 11:06
DX: H40.9 Unspecified glaucoma (principal); E11.319 Type 2 diabetes mellitus with unspecified diabetic retinopathy without macular edema; F17.200 Nicotine dependence, unspecified, uncomplicated; Z96.41 Presence of insulin pump (external) (internal); Z79.4 Long term (current) use of insulin; Z87.442 Personal history of urinary calculi; Z88.6 Allergy status to analgesic agent; Z88.5 Allergy status to narcotic agent; Z88.8 Allergy status to other drugs, medicaments and biological substances; Z91.048 Other nonmedicinal substance allergy status
CPT/HCPCS: J1120; J2060; J3010

== ENCOUNTER 2017-04-11 18:18 | Emergency (ER) | payer OTHER ==
[~2017-04-11] VITALS: Ht 175.3 cm; Wt 70.7 kg
[2017-04-11] MEDS ORDERED: NORCO 5/3251 TABLET PO (20:24)
[2017-04-11 21:07] VITALS: BP 00/0
== END 2017-04-11 21:08 | disposition home or self-care (01) ==
LOC: EME 18:18
PROC: 2W3DX1Z Immobilization of Left Lower Arm using Splint (ICD-10-PCS; principal; 2017-04-11)
DX: S52.602A Unspecified fracture of lower end of left ulna, initial encounter for closed fracture (principal); M79.641 Pain in right hand; M54.2 Cervicalgia; V80.010A Animal-rider injured by fall from or being thrown from horse in noncollision accident, initial encounter; Y93.52 Activity, horseback riding; E11.9 Type 2 diabetes mellitus without complications; Z96.41 Presence of insulin pump (external) (internal); Z79.4 Long term (current) use of insulin; F17.200 Nicotine dependence, unspecified, uncomplicated
CPT/HCPCS: 70450; 72125; 73110; 73130; 82948; 99281; 99284

== ENCOUNTER 2017-05-07 17:25 | Inpatient (IN) | payer OTHER ==
[~2017-05-07] VITALS: Ht 170.2 cm; Wt 72.8 kg
[~2017-05-07 17:25] MED LIST changes: +NORCO 5/3251 TABLET PO
[2017-05-07 17:50] LABS: HEMATOCRIT 36.6 % (38.0-50.0); HEMOGLOBIN 12.3 G/DL (12.5-16.6); MCHC 33.6 G/DL (30.0-36.0); MCV 89.3 FL (86-99); PLATELET COUNT 308 K/uL (156-360); RBC DIS.WIDTH-CV 13.4 % (11.8-14.6); RBC DIS.WIDTH-SD 43.8 % (39-53); WHITE BLOOD COUNT 10.1 K/uL (4.1-10.2)
[2017-05-07 18:02] LABS: ALBUMIN 3.7 g/dL (3.2-4.8); CHLORIDE 104 mEq/L (99-109); POTASSIUM 3.5 mEq/L (3.7-5.4); SODIUM 139 mEq/L (136-147)
[2017-05-07 18:05] LABS: GLUCOSE 327 mg/dL (70-99); TOTAL PROTEIN 6.5 g/dL (6.4-8.3)
[2017-05-07 18:06] LABS: TOTAL BILIRUBIN 0.7 mg/dL (0.0-1.0)
[2017-05-07 18:07] LABS: SERUM ETHYL ALCOHOL < 10 mg/dL
[2017-05-07 18:08] LABS: CREATININE 1.3 mg/dL (0.6-1.3); GFR ESTIMATE (CALCULATED) > 59 mL/min/ (58.99-99999)
[2017-05-07 18:09] LABS: ALKALINE PHOSPHATASE 93 IU/L (3-129)
[2017-05-07 18:10] LABS: AST (GOT) 13 IU/L (2-34); UREA NITROGEN (BUN) 19 mg/dL (9-23)
[2017-05-07 18:12] LABS: ACETAMINOPHEN (TYLENOL) < 10 mcg/mL (10-30); ALT (GPT) 13 IU/L (3-49); SALICYLATE < 5.0 MG/DL (15-30)
[2017-05-07 19:02] LABS: AMPHETAMINE NEGATIVE (500 ng/mL); BARBITURATES NEGATIVE (200 ng/mL); BENZODIAZEPINES PRESUMPTIVE POSITIVE (150 ng/mL); BUPRENORPHINE PRESUMPTIVE POSITIVE (10 ng/mL); COCAINE NEGATIVE (150 ng/mL); METHADONE NEGATIVE (200 ng/mL); METHAMPHETAMINE NEGATIVE (500 ng/mL); OPIATES (MORPHINE) NEGATIVE (100 ng/mL); OXYCODONE NEGATIVE (100 ng/mL); PHENCYCLIDINE NEGATIVE (25 ng/mL); PROPOXYPHENE NEGATIVE (300 ng/mL); THC CANNABINOIDS PRESUMPTIVE POSITIVE (50 ng/mL); TRICYCLIC ANTIDEPRESSANTS NEGATIVE (300 ng/mL)
[2017-05-07 19:37] LABS: BENZODIAZEPINES, URINE SCREEN POSITIVE (200 ng/mL)
[2017-05-08 13:58] VITALS: BP 119/70
[2017-05-08 15:47] VITALS: BP 117/78
[2017-05-08] MEDS ORDERED: CYMBALTA60 MG PO (15:53)
[2017-05-08] MEDS ORDERED: WELLBUTRIN XL300 MG PO (15:53)
[2017-05-08] MEDS ORDERED: KLONOPIN1 MG PO (15:55)
[2017-05-08] MEDS ORDERED: ABILIFY15 MG PO (15:55)
[2017-05-08 19:52] VITALS: BP 128/75
[2017-05-09 07:21] VITALS: BP 103/60
[2017-05-09 15:01] VITALS: BP 143/65
[2017-05-10 07:35] VITALS: BP 111/55
[2017-05-10 15:14] VITALS: BP 113/68
[2017-05-11 07:46] VITALS: BP 100/58
[2017-05-11 15:43] VITALS: BP 114/75
[2017-05-12 07:37] VITALS: BP 92/52
[2017-05-12 16:03] VITALS: BP 136/80
[2017-05-13 07:56] VITALS: BP 108/71
[2017-05-13 15:43] VITALS: BP 131/82
[2017-05-13 20:27] LABS: HEMATOCRIT 43.3 % (38.0-50.0); MCV 88.4 FL (86-99)
[2017-05-13 20:28] LABS: HEMOGLOBIN 14.3 G/DL (12.5-16.6)
[2017-05-13 21:03] LABS: ERTH.SED.RATE 23 MM/HR (0-15)
[2017-05-14 08:01] VITALS: BP 109/68
[2017-05-14 15:41] VITALS: BP 130/72
[2017-05-15 07:31] VITALS: BP 106/55
[2017-05-15] MEDS ORDERED: COMBIGAN O20 DROP/5 LEFT EYE (09:16)
[2017-05-15] MEDS ORDERED: TRIPLE ANTIB28.35 GM TP (09:16)
[2017-05-15] MEDS ORDERED: TRAMADOL HCL50 MG PO (09:16)
[2017-05-15] MEDS ORDERED: PREDNISOLONE AC15 ML LEFT EYE (09:16)
[2017-05-15] MEDS ORDERED: TROPICAMIDE15 M1 LEFT EYE (09:16)
[2017-05-15] MEDS ORDERED: WELLBUTRIN XL300 MG PO (09:16)
[2017-05-15 10:11] LABS: HEMOGLOBIN A1c (GLYCOHEMOGLOB) 10.1 % (Below 5.7)
== END 2017-05-15 14:58 | disposition home or self-care (01) | DRG 881 ==
LOC: EME 17:25 → EDOF 05-08 11:55 → 1WEST 05-08 11:55 → ENRESERV 05-08 13:24 → 1WEST 05-08 13:53
PROVIDERS: Emergency Medicine; Orthopaedic Surgery; Psychiatry & Neurology Psychiatry
DX: F32.9 Major depressive disorder, single episode, unspecified (principal); R45.851 Suicidal ideations; S92.911A Unspecified fracture of right toe(s), initial encounter for closed fracture; E10.319 Type 1 diabetes mellitus with unspecified diabetic retinopathy without macular edema; F41.8 Other specified anxiety disorders; F12.10 Cannabis abuse, uncomplicated; F13.10 Sedative, hypnotic or anxiolytic abuse, uncomplicated; E10.65 Type 1 diabetes mellitus with hyperglycemia; F90.9 Attention-deficit hyperactivity disorder, unspecified type; S52.602A Unspecified fracture of lower end of left ulna, initial encounter for closed fracture; S60.511A Abrasion of right hand, initial encounter; S63.91XA Sprain of unspecified part of right wrist and hand, initial encounter; W06.XXXA Fall from bed, initial encounter; F43.10 Post-traumatic stress disorder, unspecified; F19.10 Other psychoactive substance abuse, uncomplicated; F41.1 Generalized anxiety disorder; H33.20 Serous retinal detachment, unspecified eye; B35.3 Tinea pedis; F17.200 Nicotine dependence, unspecified, uncomplicated; G40.909 Epilepsy, unspecified, not intractable, without status epilepticus; Z79.4 Long term (current) use of insulin; Z85.6 Personal history of leukemia; Z96.41 Presence of insulin pump (external) (internal); Z83.3 Family history of diabetes mellitus; Z87.442 Personal history of urinary calculi; Z81.8 Family history of other mental and behavioral disorders; G89.4 Chronic pain syndrome; Z80.6 Family history of leukemia
CPT/HCPCS: 70450; 71045; 72125; 73130; 73630; 80053; 82948; 83036; 84999; 85014; 85018; 85027; 85652; 86140; 90837; 93005; 97150 GO; 97165 GO; 99281; 99285; G0480; J1630; J1815; J2060; J2310; J7030

== ENCOUNTER 2017-06-17 11:48 | Emergency (ER) | payer OTHER ==
[~2017-06-17] VITALS: Ht 177.8 cm; Wt 80.6 kg
[~2017-06-17 11:48] MED LIST changes: +ABILIFY15 MG PO; +COMBIGAN O20 DROP/5 LEFT EYE; +CYMBALTA60 MG PO; +KLONOPIN1 MG PO; +PREDNISOLONE AC15 ML LEFT EYE; +TRIPLE ANTIB28.35 GM TP; +TROPICAMIDE15 M1 LEFT EYE
[2017-06-17 12:42] LABS: HEMATOCRIT 39.8 % (38.0-50.0); HEMOGLOBIN 13.6 G/DL (12.5-16.6); MCH 30.8 PG (29.0-34.0); MCHC 34.2 G/DL (30.0-36.0); PLATELET COUNT 212 K/uL (156-360); RBC DIS.WIDTH-CV 12.9 % (11.8-14.6); RBC DIS.WIDTH-SD 42.9 % (39-53); RED BLOOD COUNT 4.42 M/uL (4.00-5.50); WHITE BLOOD COUNT 12.1 K/uL (4.1-10.2)
[2017-06-17 13:02] LABS: CHLORIDE 102 mEq/L (99-109); POTASSIUM 4.7 mEq/L (3.7-5.4); SODIUM 138 mEq/L (136-147)
[2017-06-17 13:04] LABS: GLUCOSE 179 mg/dL (70-99)
[2017-06-17 13:07] LABS: CREATININE 0.8 mg/dL (0.6-1.3); GFR ESTIMATE (CALCULATED) > 59 mL/min/ (58.99-99999)
[2017-06-17 13:08] LABS: UREA NITROGEN (BUN) 15 mg/dL (9-23)
[2017-06-17 14:01] VITALS: BP 124/84
== END 2017-06-17 14:11 | disposition home or self-care (01) ==
LOC: EME 11:48
PROVIDERS: Emergency Medicine
DX: E11.649 Type 2 diabetes mellitus with hypoglycemia without coma (principal); T38.3X1A Poisoning by insulin and oral hypoglycemic [antidiabetic] drugs, accidental (unintentional), initial encounter; E11.319 Type 2 diabetes mellitus with unspecified diabetic retinopathy without macular edema; Z79.4 Long term (current) use of insulin; Z96.41 Presence of insulin pump (external) (internal); Z87.442 Personal history of urinary calculi; G43.909 Migraine, unspecified, not intractable, without status migrainosus; R56.9 Unspecified convulsions; Z88.5 Allergy status to narcotic agent; Z88.6 Allergy status to analgesic agent; F17.200 Nicotine dependence, unspecified, uncomplicated
CPT/HCPCS: 80048; 82948; 85027; 99281; 99284

== ENCOUNTER 2017-06-24 08:43 | Observation (INO) | payer OTHER ==
[~2017-06-24] VITALS: Ht 177.8 cm; Wt 76.7 kg
[2017-06-24 09:07] LABS: BASOPHIL (%) 0.3 % (0-1); EOSINOPHIL (%) 1.9 % (0-5); EOSINOPHIL COUNT 0.2 K/uL (0-0.3); HEMATOCRIT 37.3 % (38.0-50.0); HEMOGLOBIN 12.9 G/DL (12.5-16.6); IMMATURE GRANULOCYTE (%) 0.3 % (0.0-0.7); LYMPHOCYTE (%) 12.1 % (15-42); LYMPHOCYTE COUNT 1.3 K/uL (1.0-2.8); MCH 30.9 PG (29.0-34.0); MCHC 34.6 G/DL (30.0-36.0); MCV 89.2 FL (86-99); MONOCYTE (%) 4.3 % (3-12); MONOCYTE COUNT 0.5 K/uL (0-0.8); NEUTROPHIL (%) 81.1 % (45-76); NEUTROPHIL COUNT 8.6 K/uL (1.8-6.4); RBC DIS.WIDTH-CV 12.6 % (11.8-14.6); RBC DIS.WIDTH-SD 41.4 % (39-53); RED BLOOD COUNT 4.18 M/uL (4.00-5.50); WHITE BLOOD COUNT 10.6 K/uL (4.1-10.2)
[2017-06-24 09:09] LABS: PLATELET COUNT 324 K/uL (156-360)
[2017-06-24 09:16] LABS: ALBUMIN 4.2 g/dL (3.2-4.8); CHLORIDE 101 mEq/L (99-109); POTASSIUM 5.1 mEq/L (3.7-5.4); SODIUM 136 mEq/L (136-147)
[2017-06-24 09:17] LABS: MAGNESIUM 2.1 mg/dL (1.3-2.7)
[2017-06-24 09:19] LABS: TOTAL PROTEIN 7.1 g/dL (6.4-8.3)
[2017-06-24 09:20] LABS: GLUCOSE 755 mg/dL (70-99); TOTAL BILIRUBIN 0.9 mg/dL (0.0-1.0)
[2017-06-24 09:21] LABS: SERUM ETHYL ALCOHOL < 10 mg/dL
[2017-06-24 09:22] LABS: ALKALINE PHOSPHATASE 101 IU/L (3-129); CREATININE 1.8 mg/dL (0.6-1.3); GFR ESTIMATE (CALCULATED) 47 mL/min/ (58.99-99999)
[2017-06-24 09:24] LABS: AST (GOT) 35 IU/L (2-34)
[2017-06-24 09:25] LABS: ALT (GPT) 26 IU/L (3-49)
[2017-06-24 09:29] LABS: CREATINE KINASE 1665 IU/L (1-294); UREA NITROGEN (BUN) 26 mg/dL (9-23)
[2017-06-24 09:57] LABS: APPEARANCE CLEAR ((CLEAR)); BILIRUBIN NEGATIVE; BLOOD SMALL; COLOR STRAW ((YELLOW)); GLUCOSE (STRIP) >=500; KETONES 5; LEUKOCYTES NEGATIVE; NITRITE NEGATIVE; PROTEIN (STRIP) 30; SPECIFIC GRAVITY 1.028 (1.000-1.030); UROBILINOGEN 0.2 MG/DL (0.2-1.0)
[2017-06-24 09:59] LABS: BACTERIA NONE SEEN /HPF; EPITHELIAL CELLS NONE SEEN /HPF; MUCUS NONE SEEN /LPF; RED BLOOD CELLS 0-5 /HPF (0-5); UCUL ADDED? NO; WHITE BLOOD CELLS 0-5 /HPF (0-5)
[2017-06-24 10:06] LABS: AMPHETAMINE NEGATIVE (500 ng/mL); BARBITURATES NEGATIVE (200 ng/mL); BENZODIAZEPINES NEGATIVE (150 ng/mL); BUPRENORPHINE NEGATIVE (10 ng/mL); COCAINE NEGATIVE (150 ng/mL); METHADONE NEGATIVE (200 ng/mL); METHAMPHETAMINE NEGATIVE (500 ng/mL); OPIATES (MORPHINE) NEGATIVE (100 ng/mL); OXYCODONE NEGATIVE (100 ng/mL); PHENCYCLIDINE NEGATIVE (25 ng/mL); PROPOXYPHENE NEGATIVE (300 ng/mL); THC CANNABINOIDS PRESUMPTIVE POSITIVE (50 ng/mL); TRICYCLIC ANTIDEPRESSANTS PRESUMPTIVE POSITIVE (300 ng/mL)
[2017-06-24] MEDS ORDERED: MINIPRESS1 MG PO (15:00)
[2017-06-24] MEDS ORDERED: KLONOPIN1 MG PO (15:03)
[2017-06-24] MEDS ORDERED: WELLBUTRIN XL300 MG PO (15:03)
[2017-06-24] MEDS ORDERED: TRAZODONE HCL50 MG PO (15:04)
[2017-06-24 15:28] VITALS: BP 109/68
[2017-06-24 18:00] VITALS: BP 113/72
[2017-06-24 19:37] LABS: CARBON DIOXIDE (BICARBONATE) 29.5 MEQ/L (20-31)
[2017-06-24 19:49] LABS: ALBUMIN 3.5 G/DL (3.2-4.8); ALKALINE PHOSPHATASE 63 IU/L (3-129); ALT (GPT) 20 IU/L (3-49); AST (GOT) 35 IU/L (2-34); CHLORIDE 106 MEQ/L (99-109); CREATININE 1.4 MG/DL (0.6-1.3); GFR ESTIMATE (CALCULATED) > 59 mL/min/ (58.99-99999); MAGNESIUM 1.8 mg/dl (1.3-2.7); SODIUM 139 MEQ/L (136-147); TOTAL PROTEIN 5.7 G/DL (6.4-8.3); UREA NITROGEN (BUN) 17 mg/dL (9-23)
[2017-06-24 19:51] LABS: GLUCOSE 295 mg/dL (70-99)
[2017-06-24 20:57] LABS: BASE EXCESS 1.3 mEq/L (-3 to +3); BICARBONATE 25.9 mEq/L (22-26); CARBOXY HGB 1.6 % (0-5); COMMENTS - BLOOD GASES C+A+; FI02 21 %; METHEMOGLOBIN 1.2 % (0-1.5); O2 FLOW 0 L/MIN; PCO2 40 mm Hg (35-45); PO2 84 mm Hg (80-100); SITE LR; pH 7.42 (7.35-7.45)
[2017-06-24 23:26] VITALS: BP 104/55
[2017-06-25 03:53] VITALS: BP 93/58
[2017-06-25 06:22] LABS: HEMATOCRIT 33.8 % (38.0-50.0); HEMOGLOBIN 11.6 G/DL (12.5-16.6); MCH 30.9 PG (29.0-34.0); MCHC 34.3 G/DL (30.0-36.0); MCV 89.9 FL (86-99); PLATELET COUNT 273 K/uL (156-360); RBC DIS.WIDTH-SD 42.7 % (39-53); RED BLOOD COUNT 3.76 M/uL (4.00-5.50); WHITE BLOOD COUNT 6.7 K/uL (4.1-10.2)
[2017-06-25 06:36] LABS: CHLORIDE 105 MEQ/L (99-109); GFR ESTIMATE (CALCULATED) > 59 mL/min/ (58.99-99999); GLUCOSE 162 mg/dL (70-99); POTASSIUM 4.3 MEQ/L (3.7-5.4); SODIUM 139 MEQ/L (136-147); UREA NITROGEN (BUN) 15 mg/dL (9-23)
[2017-06-25 06:40] LABS: CREATINE KINASE 1142 IU/L (1-294)
[2017-06-25 07:25] VITALS: BP 117/78
[2017-06-25 12:06] VITALS: BP 131/89
[2017-06-26 13:09] LABS: HEMOGLOBIN A1c (GLYCOHEMOGLOB) 10.3 % (Below 5.7)
== END 2017-06-25 15:03 | disposition home or self-care (01) ==
LOC: EME → EDBD 08:43 → EDOF 14:32 → ENRESERV 14:35 → EDOF 14:38 → ENRESERV 15:03 → 5WEST 15:23
PROVIDERS: Emergency Medicine; Internal Medicine; Physician Assistant Medical
DX: M62.82 Rhabdomyolysis (principal); E10.65 Type 1 diabetes mellitus with hyperglycemia; N17.9 Acute kidney failure, unspecified; E86.0 Dehydration; Z96.41 Presence of insulin pump (external) (internal); Z87.442 Personal history of urinary calculi; F63.81 Intermittent explosive disorder; E10.319 Type 1 diabetes mellitus with unspecified diabetic retinopathy without macular edema; R56.9 Unspecified convulsions; G43.909 Migraine, unspecified, not intractable, without status migrainosus; F19.10 Other psychoactive substance abuse, uncomplicated; H54.62 Unqualified visual loss, left eye, normal vision right eye; F17.220 Nicotine dependence, chewing tobacco, uncomplicated; M25.561 Pain in right knee; S00.511A Abrasion of lip, initial encounter
CPT/HCPCS: 36600; 70450; 80048; 80053; 81003; 82010; 82550; 82550 91; 82803; 82948; 83036; 83735; 84999; 85025; 85027; 87641; 99281; 99285; G0378; G0480; J1630; J1650; J2060; J7030; J7040; J7120

== ENCOUNTER 2017-07-13 14:54 | Emergency (ER) | payer OTHER ==
[~2017-07-13] VITALS: Ht 177.8 cm; Wt 77.9 kg
[~2017-07-13 14:54] MED LIST changes: +MINIPRESS1 MG PO
[2017-07-13 16:42] LABS: HEMATOCRIT 37.2 % (38.0-50.0); HEMOGLOBIN 13.5 G/DL (12.5-16.6); MCHC 36.3 G/DL (30.0-36.0); RBC DIS.WIDTH-CV 12.6 % (11.8-14.6); RBC DIS.WIDTH-SD 39.6 % (39-53); RED BLOOD COUNT 4.35 M/uL (4.00-5.50); WHITE BLOOD COUNT 11.5 K/uL (4.1-10.2)
[2017-07-13 16:43] LABS: MCV 85.5 FL (86-99); PLATELET COUNT 456 K/uL (156-360)
[2017-07-13 16:58] LABS: CHLORIDE 96 mEq/L (99-109); POTASSIUM 4.2 mEq/L (3.7-5.4); SODIUM 133 mEq/L (136-147)
[2017-07-13 17:00] LABS: GLUCOSE 336 mg/dL (70-99)
[2017-07-13 17:04] LABS: CREATININE 1.3 mg/dL (0.6-1.3); GFR ESTIMATE (CALCULATED) > 59 mL/min/ (58.99-99999)
[2017-07-13 17:05] LABS: UREA NITROGEN (BUN) 24 mg/dL (9-23)
[2017-07-13 17:58] LABS: APPEARANCE CLEAR ((CLEAR)); BILIRUBIN NEGATIVE; BLOOD NEGATIVE; COLOR YELLOW ((YELLOW)); GLUCOSE (STRIP) >=500; KETONES 5; LEUKOCYTES NEGATIVE; NITRITE NEGATIVE; PROTEIN (STRIP) 30; UCUL ADDED? NO; UROBILINOGEN 0.2 MG/DL (0.2-1.0)
[2017-07-13 18:06] LABS: AMPHETAMINE NEGATIVE (500 ng/mL); BARBITURATES NEGATIVE (200 ng/mL); BENZODIAZEPINES PRESUMPTIVE POSITIVE (150 ng/mL); BUPRENORPHINE NEGATIVE (10 ng/mL); COCAINE NEGATIVE (150 ng/mL); METHADONE NEGATIVE (200 ng/mL); METHAMPHETAMINE NEGATIVE (500 ng/mL); OPIATES (MORPHINE) NEGATIVE (100 ng/mL); OXYCODONE NEGATIVE (100 ng/mL); PHENCYCLIDINE NEGATIVE (25 ng/mL); PROPOXYPHENE NEGATIVE (300 ng/mL); THC CANNABINOIDS NEGATIVE (50 ng/mL); TRICYCLIC ANTIDEPRESSANTS NEGATIVE (300 ng/mL)
[2017-07-13 18:38] VITALS: BP 125/81
[2017-07-13 19:01] LABS: BENZODIAZEPINES, URINE SCREEN POSITIVE (200 ng/mL)
== END 2017-07-13 18:39 | disposition home or self-care (01) ==
LOC: EME 14:54
PROVIDERS: Emergency Medicine
DX: S20.219A Contusion of unspecified front wall of thorax, initial encounter (principal); W18.12XA Fall from or off toilet with subsequent striking against object, initial encounter; R53.83 Other fatigue; T42.4X5A Adverse effect of benzodiazepines, initial encounter; F41.9 Anxiety disorder, unspecified; E11.9 Type 2 diabetes mellitus without complications; Z96.41 Presence of insulin pump (external) (internal); Z79.4 Long term (current) use of insulin; H40.9 Unspecified glaucoma; Z87.442 Personal history of urinary calculi; Z88.5 Allergy status to narcotic agent; Z88.6 Allergy status to analgesic agent
CPT/HCPCS: 71045; 80048; 81003; 82948; 84999; 85027; 99281; 99284

== ENCOUNTER 2017-07-14 08:35 | Inpatient (IN) | payer OTHER ==
[~2017-07-14] VITALS: Ht 175.3 cm; Wt 73.2 kg
[2017-07-14] VITALS (10 sets, daily range): BP systolic 94–141; BP diastolic 72–94
[2017-07-14 09:05] LABS: CARBOXY HGB 1.8 % (0-5); METHEMOGLOBIN 1.1 % (0-1.5); PO2 83 mm Hg (80-100)
[2017-07-14 09:07] LABS: BICARBONATE 12.1 mEq/L (22-26); PCO2 29 mm Hg (35-45)
[2017-07-14 09:08] LABS: COMMENTS - BLOOD GASES A+C+; DEVICE RA; FI02 21 %; SITE RR; TOTAL RESP RATE 18 resp/min
[2017-07-14 09:09] LABS: pH 7.23 (7.35-7.45)
[2017-07-14 09:21] LABS: APPEARANCE CLEAR ((CLEAR)); BILIRUBIN NEGATIVE; BLOOD MODERATE; COLOR STRAW ((YELLOW)); GLUCOSE (STRIP) >=500; KETONES 80; LEUKOCYTES NEGATIVE; NITRITE NEGATIVE; PROTEIN (STRIP) 30; SPECIFIC GRAVITY 1.025 (1.000-1.030); UROBILINOGEN 0.2 MG/DL (0.2-1.0)
[2017-07-14 09:23] LABS: BACTERIA NONE SEEN /HPF; EPITHELIAL CELLS NONE SEEN /HPF; MUCUS NONE SEEN /LPF; RED BLOOD CELLS 0-5 /HPF (0-5); UCUL ADDED? NO; WHITE BLOOD CELLS 0-5 /HPF (0-5)
[2017-07-14 09:26] LABS: CHLORIDE 91 mEq/L (99-109); SODIUM 134 mEq/L (136-147)
[2017-07-14 09:28] LABS: TOTAL PROTEIN 8.9 g/dL (6.4-8.3)
[2017-07-14 09:30] LABS: TOTAL BILIRUBIN 1.1 mg/dL (0.0-1.0)
[2017-07-14 09:31] LABS: ALKALINE PHOSPHATASE 124 IU/L (3-129)
[2017-07-14 09:32] LABS: GFR ESTIMATE (CALCULATED) 28 mL/min/ (58.99-99999)
[2017-07-14 09:33] LABS: AST (GOT) 34 IU/L (2-34)
[2017-07-14 09:35] LABS: ALT (GPT) 36 IU/L (3-49); HEMATOCRIT 43.5 % (38.0-50.0); HEMOGLOBIN 14.7 G/DL (12.5-16.6); MCH 31.1 PG (29.0-34.0); MCHC 33.8 G/DL (30.0-36.0); MCV 92.2 FL (86-99); PLATELET COUNT 524 K/uL (156-360); RBC DIS.WIDTH-CV 13.1 % (11.8-14.6); RBC DIS.WIDTH-SD 43.8 % (39-53); RED BLOOD COUNT 4.72 M/uL (4.00-5.50); WHITE BLOOD COUNT 21.3 K/uL (4.1-10.2)
[2017-07-14 09:37] LABS: CREATININE 2.8 mg/dL (0.6-1.3); GLUCOSE 908 mg/dL (70-99); UREA NITROGEN (BUN) 39 mg/dL (9-23)
[2017-07-14 09:40] LABS: POTASSIUM 6.9 mEq/L (3.7-5.4)
[2017-07-14 12:22] LABS: GLUCOSE 644 mg/dL (70-99)
[2017-07-14 12:50] LABS: AMYLASE 235 IU/L (1-118); CHLORIDE 96 MEQ/L (99-109); CREATININE 1.7 MG/DL (0.6-1.3); GFR ESTIMATE (CALCULATED) 50 mL/min/ (58.99-99999); GLUCOSE 633 mg/dL (70-99); HIGH-SENS C-REACTIVE PROTEIN 3.06 MG/DL (0.02-0.20); LIPASE 277 U/L (1.0-51.0); MAGNESIUM 2.4 mg/dl (1.3-2.7); POTASSIUM 4.2 MEQ/L (3.7-5.4); SODIUM 140 MEQ/L (136-147); UREA NITROGEN (BUN) 35 mg/dL (9-23)
[2017-07-14 18:07] LABS: CHLORIDE 105 MEQ/L (99-109); CREATINE KINASE 794 IU/L (1-294); CREATININE 1.3 MG/DL (0.6-1.3); GFR ESTIMATE (CALCULATED) > 59 mL/min/ (58.99-99999); POTASSIUM 4.2 MEQ/L (3.7-5.4); SODIUM 141 MEQ/L (136-147); UREA NITROGEN (BUN) 23 mg/dL (9-23)
[2017-07-14 18:11] LABS: GLUCOSE 290 mg/dL (70-99); PHOSPHORUS 2.9 mg/dL (2.5-4.9)
[2017-07-15 10:54] LABS: HEMOGLOBIN A1c (GLYCOHEMOGLOB) 10.2 % (Below 5.7)
== END 2017-07-14 20:45 | disposition left against medical advice (07) | DRG 871 ==
LOC: EME 08:35 → EDOF 09:57 → 4WEST 09:57 → ENRESERV 09:59 → EDOF 10:15 → ENRESERV 10:24 → 4WEST 11:22
PROVIDERS: Emergency Medicine; Internal Medicine; Internal Medicine Critical Care Medicine
PROC: 02HV33Z Insertion of Infusion Device into Superior Vena Cava, Percutaneous Approach (ICD-10-PCS; principal; 2017-07-14)
DX: A41.9 Sepsis, unspecified organism (principal); R65.20 Severe sepsis without septic shock; N17.9 Acute kidney failure, unspecified; E11.10 Type 2 diabetes mellitus with ketoacidosis without coma; E87.2 Acidosis; E87.5 Hyperkalemia; F19.10 Other psychoactive substance abuse, uncomplicated; E11.319 Type 2 diabetes mellitus with unspecified diabetic retinopathy without macular edema; H40.9 Unspecified glaucoma; G89.29 Other chronic pain; R56.9 Unspecified convulsions; G43.909 Migraine, unspecified, not intractable, without status migrainosus; R45.4 Irritability and anger; F60.89 Other specific personality disorders; Z96.41 Presence of insulin pump (external) (internal); Z79.4 Long term (current) use of insulin; Z91.14 Patient's other noncompliance with medication regimen; Z91.19 Patient's noncompliance with other medical treatment and regimen; Z87.442 Personal history of urinary calculi; Z83.3 Family history of diabetes mellitus; Z53.29 Procedure and treatment not carried out because of patient's decision for other reasons
CPT/HCPCS: 36600; 71045; 80048; 80048 91; 80053; 81003; 82150; 82550; 82803; 82948; 83036; 83605; 83690; 83735; 84100; 84145 90; 84999; 85027; 86141; 87040; 87641; 93005; 99281; 99285; J0610; J0696; J1644; J1815; J2405; J3010; J3370; J7030; J7050; S0028

== ENCOUNTER 2017-07-15 10:40 | Inpatient (IN) | payer OTHER ==
[~2017-07-15] VITALS: Ht 177.8 cm; Wt 81.9 kg
[2017-07-15] VITALS (9 sets, daily range): BP systolic 88–129; BP diastolic 52–79
[2017-07-15 11:35] LABS: HEMATOCRIT 39.8 % (38.0-50.0); HEMOGLOBIN 13.1 G/DL (12.5-16.6); MCH 31.1 PG (29.0-34.0); MCHC 32.9 G/DL (30.0-36.0); MCV 94.5 FL (86-99); PLATELET COUNT 431 K/uL (156-360); RBC DIS.WIDTH-CV 13.5 % (11.8-14.6); RBC DIS.WIDTH-SD 46.8 % (39-53); RED BLOOD COUNT 4.21 M/uL (4.00-5.50); WHITE BLOOD COUNT 20.5 K/uL (4.1-10.2)
[2017-07-15 11:44] LABS: ALBUMIN 4.4 g/dL (3.2-4.8); CHLORIDE 97 mEq/L (99-109)
[2017-07-15 11:45] LABS: SODIUM 137 mEq/L (136-147)
[2017-07-15 11:50] LABS: ALKALINE PHOSPHATASE 125 IU/L (3-129)
[2017-07-15 11:51] LABS: UREA NITROGEN (BUN) 34 mg/dL (9-23)
[2017-07-15 11:52] LABS: APPEARANCE CLEAR ((CLEAR)); BILIRUBIN NEGATIVE; BLOOD MODERATE; COLOR COLORLESS ((YELLOW)); GLUCOSE (STRIP) >=500; KETONES 80; LEUKOCYTES NEGATIVE; NITRITE NEGATIVE; PROTEIN (STRIP) 30; SPECIFIC GRAVITY 1.021 (1.000-1.030); UROBILINOGEN 0.2 MG/DL (0.2-1.0)
[2017-07-15 11:53] LABS: ALT (GPT) 42 IU/L (3-49)
[2017-07-15 11:55] LABS: BACTERIA NONE SEEN /HPF; EPITHELIAL CELLS NONE SEEN /HPF; MUCUS TRACE /LPF; RED BLOOD CELLS 0-5 /HPF (0-5); UCUL ADDED? NO; WHITE BLOOD CELLS 0-5 /HPF (0-5)
[2017-07-15 11:56] LABS: AST (GOT) 67 IU/L (2-34); CREATININE 2.5 mg/dL (0.6-1.3); GFR ESTIMATE (CALCULATED) 32 mL/min/ (58.99-99999); GLUCOSE 761 mg/dL (70-99); TOTAL BILIRUBIN 0.7 mg/dL (0.0-1.0); TOTAL PROTEIN 7.4 g/dL (6.4-8.3)
[2017-07-15 11:57] LABS: POTASSIUM 6.2 mEq/L (3.7-5.4); TROP-I INTERPRETATION NEGATIVE; TROPONIN-I 0.02 ng/mL (0.0-0.30)
[2017-07-15 12:01] LABS: AMPHETAMINE NEGATIVE (500 ng/mL); BARBITURATES NEGATIVE (200 ng/mL); BENZODIAZEPINES PRESUMPTIVE POSITIVE (150 ng/mL); BUPRENORPHINE NEGATIVE (10 ng/mL); COCAINE NEGATIVE (150 ng/mL); METHADONE NEGATIVE (200 ng/mL); METHAMPHETAMINE NEGATIVE (500 ng/mL); OPIATES (MORPHINE) NEGATIVE (100 ng/mL); OXYCODONE NEGATIVE (100 ng/mL); PHENCYCLIDINE NEGATIVE (25 ng/mL); PROPOXYPHENE NEGATIVE (300 ng/mL); THC CANNABINOIDS NEGATIVE (50 ng/mL); TRICYCLIC ANTIDEPRESSANTS NEGATIVE (300 ng/mL)
[2017-07-15 12:35] LABS: BENZODIAZEPINES, URINE SCREEN POSITIVE (200 ng/mL)
[2017-07-15 13:50] LABS: BASE EXCESS -22.8 mEq/L (-3 to +3); CARBOXY HGB 0.9 % (0-5); PCO2 25 mm Hg (35-45)
[2017-07-15 13:52] LABS: BICARBONATE 6.6 mEq/L (22-26); COMMENTS - BLOOD GASES A+C+; DEVICE PB 840; FI02 100 %; MECHANICAL RATE 28 resp/min; MODE AC; PEEP 5 CM/H20; PO2 480 mm Hg (80-100); PRES. SUPPORT 600 CM/H2O; SITE RR; TOTAL RESP RATE 28 resp/min; pH 7.03 (7.35-7.45)
[2017-07-15 16:28] LABS: BASE EXCESS -16.8 mEq/L (-3 to +3); METHEMOGLOBIN 1.6 % (0-1.5)
[2017-07-15 16:29] LABS: BICARBONATE 8.6 mEq/L (22-26); COMMENTS - BLOOD GASES A+C+; DEVICE VENT; FI02 50 %; MECHANICAL RATE 28 resp/min; MODE AC; PCO2 20 mm Hg (35-45); PEEP 5 CM/H20; PO2 227 mm Hg (80-100); SITE LRAD; TIDAL VOLUME 600 ML; TOTAL RESP RATE 28 resp/min; pH 7.24 (7.35-7.45)
[2017-07-15 17:04] LABS: GLUCOSE 434 mg/dL (70-99)
[2017-07-15 17:05] LABS: CHLORIDE 108 MEQ/L (99-109); CREATININE 1.7 MG/DL (0.6-1.3); GFR ESTIMATE (CALCULATED) 50 mL/min/ (58.99-99999); POTASSIUM 5.3 MEQ/L (3.7-5.4); SODIUM 138 MEQ/L (136-147); UREA NITROGEN (BUN) 30 mg/dL (9-23)
[2017-07-15 17:06] LABS: PHOSPHORUS 3.8 mg/dL (2.5-4.9)
[2017-07-15 20:07] LABS: HIGH-SENS C-REACTIVE PROTEIN 3.69 MG/DL (0.02-0.20)
[2017-07-15 21:16] LABS: HEMATOCRIT 33.7 % (38.0-50.0); HEMOGLOBIN 11.2 G/DL (12.5-16.6); MCH 30.4 PG (29.0-34.0); MCHC 33.2 G/DL (30.0-36.0); MCV 91.6 FL (86-99); PLATELET COUNT 311 K/uL (156-360); RBC DIS.WIDTH-CV 13.6 % (11.8-14.6); RBC DIS.WIDTH-SD 45.4 % (39-53); RED BLOOD COUNT 3.68 M/uL (4.00-5.50); WHITE BLOOD COUNT 13.7 K/uL (4.1-10.2)
[2017-07-15 22:11] LABS: CHLORIDE 113 MEQ/L (99-109); CREATININE 1.6 MG/DL (0.6-1.3); GFR ESTIMATE (CALCULATED) 54 mL/min/ (58.99-99999); GLUCOSE 195 mg/dL (70-99); MAGNESIUM 2.2 mg/dl (1.3-2.7); PHOSPHORUS 2.8 mg/dL (2.5-4.9); POTASSIUM 4.3 MEQ/L (3.7-5.4); THYROTROPIN (TSH) 0.19 MIU/L (0.4-5.5); UREA NITROGEN (BUN) 24 mg/dL (9-23)
[2017-07-15 22:12] LABS: SODIUM 149 MEQ/L (136-147)
[2017-07-16] VITALS (23 sets, daily range): BP systolic 87–167; BP diastolic 44–92
[2017-07-16 03:47] LABS: ALBUMIN 3.2 g/dL (3.2-4.8)
[2017-07-16 03:48] LABS: SODIUM 151 mEq/L (136-147)
[2017-07-16 03:49] LABS: BASOPHIL (%) 0.2 % (0-1); EOSINOPHIL (%) 0.4 % (0-5); HEMATOCRIT 27.7 % (38.0-50.0); HEMOGLOBIN 9.8 G/DL (12.5-16.6); IMMATURE GRANULOCYTE (%) 0.4 % (0.0-0.7); LYMPHOCYTE (%) 30.1 % (15-42); LYMPHOCYTE COUNT 3.4 K/uL (1.0-2.8); MCH 30.8 PG (29.0-34.0); MCHC 35.4 G/DL (30.0-36.0); MCV 87.1 FL (86-99); MONOCYTE COUNT 0.9 K/uL (0-0.8); NEUTROPHIL (%) 60.9 % (45-76); NEUTROPHIL COUNT 6.9 K/uL (1.8-6.4); PLATELET COUNT 241 K/uL (156-360); RBC DIS.WIDTH-CV 13.3 % (11.8-14.6); RBC DIS.WIDTH-SD 42.3 % (39-53); RED BLOOD COUNT 3.18 M/uL (4.00-5.50); WHITE BLOOD COUNT 11.2 K/uL (4.1-10.2)
[2017-07-16 03:54] LABS: CREATININE 1.6 mg/dL (0.6-1.3); GFR ESTIMATE (CALCULATED) 54 mL/min/ (58.99-99999)
[2017-07-16 03:55] LABS: UREA NITROGEN (BUN) 23 mg/dL (9-23)
[2017-07-16 03:57] LABS: ALT (GPT) 26 IU/L (3-49)
[2017-07-16 04:03] LABS: ALKALINE PHOSPHATASE 70 IU/L (3-129); AST (GOT) 36 IU/L (2-34); CHLORIDE 119 mEq/L (99-109); GLUCOSE 100 mg/dL (70-99); POTASSIUM 3.4 mEq/L (3.7-5.4); TOTAL PROTEIN 5.4 g/dL (6.4-8.3)
[2017-07-16 04:05] LABS: PHOSPHORUS < 1.0 mg/dL (2.5-4.9)
[2017-07-16 04:28] LABS: HIGH-SENS C-REACTIVE PROTEIN 2.84 MG/DL (0.02-0.20)
[2017-07-16 09:24] LABS: CHLORIDE 116 MEQ/L (99-109); CREATININE 1.5 MG/DL (0.6-1.3); GFR ESTIMATE (CALCULATED) 58 mL/min/ (58.99-99999); GLUCOSE 166 mg/dL (70-99); PHOSPHORUS 2.2 mg/dL (2.5-4.9); POTASSIUM 3.4 MEQ/L (3.7-5.4); SODIUM 149 MEQ/L (136-147); UREA NITROGEN (BUN) 22 mg/dL (9-23)
[2017-07-16 10:33] LABS: INTER. NORMALIZED RATIO 1.1
[2017-07-16 10:35] LABS: PTT 20.7 SEC (25-37)
[2017-07-16 11:21] LABS: LYME DISEASE SEROLOGY SCREEN NEGATIVE (NEGATIVE); TREPONEMA ANTIBODY NEGATIVE (NEGATIVE)
[2017-07-16 15:40] LABS: CHLORIDE 118 mEq/L (99-109); POTASSIUM 3.9 mEq/L (3.7-5.4); SODIUM 146 mEq/L (136-147)
[2017-07-16 15:41] LABS: MAGNESIUM 2.1 mg/dL (1.3-2.7)
[2017-07-16 15:42] LABS: GLUCOSE 169 mg/dL (70-99)
[2017-07-16 15:46] LABS: CREATININE 1.5 mg/dL (0.6-1.3); GFR ESTIMATE (CALCULATED) 58 mL/min/ (58.99-99999)
[2017-07-16 15:47] LABS: UREA NITROGEN (BUN) 17 mg/dL (9-23)
[2017-07-16 15:48] LABS: PHOSPHORUS 2.9 mg/dL (2.5-4.9)
[2017-07-16 21:14] LABS: CHLORIDE 114 MEQ/L (99-109); CREATININE 1.1 MG/DL (0.6-1.3); GFR ESTIMATE (CALCULATED) > 59 mL/min/ (58.99-99999); GLUCOSE 185 mg/dL (70-99); MAGNESIUM 1.9 mg/dl (1.3-2.7); PHOSPHORUS 2.1 mg/dL (2.5-4.9); POTASSIUM 3.3 MEQ/L (3.7-5.4); SODIUM 143 MEQ/L (136-147); UREA NITROGEN (BUN) 13 mg/dL (9-23)
[2017-07-17] VITALS (28 sets, daily range): BP systolic 95–155; BP diastolic 48–105
[2017-07-17 02:59] LABS: BASOPHIL (%) 0.3 % (0-1); EOSINOPHIL COUNT 0.1 K/uL (0-0.3); HEMOGLOBIN 8.5 G/DL (12.5-16.6); IMMATURE GRANULOCYTE (%) 0.5 % (0.0-0.7); LYMPHOCYTE (%) 27.1 % (15-42); LYMPHOCYTE COUNT 1.7 K/uL (1.0-2.8); MONOCYTE (%) 7.3 % (3-12); MONOCYTE COUNT 0.5 K/uL (0-0.8); NEUTROPHIL (%) 62.8 % (45-76); RBC DIS.WIDTH-CV 14.2 % (11.8-14.6); RBC DIS.WIDTH-SD 47.4 % (39-53); RED BLOOD COUNT 2.74 M/uL (4.00-5.50); WHITE BLOOD COUNT 6.4 K/uL (4.1-10.2)
[2017-07-17 03:05] LABS: CHLORIDE 113 mEq/L (99-109); POTASSIUM 3.3 mEq/L (3.7-5.4); SODIUM 141 mEq/L (136-147)
[2017-07-17 03:06] LABS: GLUCOSE 167 mg/dL (70-99)
[2017-07-17 03:10] LABS: CREATININE 1.1 mg/dL (0.6-1.3); GFR ESTIMATE (CALCULATED) > 59 mL/min/ (58.99-99999)
[2017-07-17 03:11] LABS: UREA NITROGEN (BUN) 10 mg/dL (9-23)
[2017-07-17 03:12] LABS: MCV 91.2 FL (86-99)
[2017-07-17 03:31] LABS: PLAT.SUFFICIENCY DECREASED; PLATELET COUNT 141 K/uL (156-360)
[2017-07-17 09:35] LABS: CHLORIDE 112 MEQ/L (99-109); CREATININE 0.9 MG/DL (0.6-1.3); GFR ESTIMATE (CALCULATED) > 59 mL/min/ (58.99-99999); GLUCOSE 156 mg/dL (70-99); POTASSIUM 3.8 MEQ/L (3.7-5.4); SODIUM 142 MEQ/L (136-147); UREA NITROGEN (BUN) 7 mg/dL (9-23)
[2017-07-17 10:00] LABS: VANCOMYCIN, TROUGH 7.9 MCG/ML (10-20)
[2017-07-17 13:08] LABS: HEPATITIS B SURFACE ANTIGEN Nonreactive
[2017-07-17 13:09] LABS: ANTI-HEPATITIS A VIRUS (IGM) Nonreactive; HEPATITIS C ANTIBODY Nonreactive
[2017-07-17 13:11] LABS: ANTI-HEPATITIS B CORE (IGM) Nonreactive; HIV-1/2 AB/AG COMBO Nonreactive
[2017-07-17 16:37] LABS: CHLORIDE 110 MEQ/L (99-109); CREATININE 0.8 MG/DL (0.6-1.3); GFR ESTIMATE (CALCULATED) > 59 mL/min/ (58.99-99999); POTASSIUM 3.7 MEQ/L (3.7-5.4); SODIUM 141 MEQ/L (136-147); UREA NITROGEN (BUN) 6 mg/dL (9-23)
[2017-07-17 16:46] LABS: GLUCOSE 267 mg/dL (70-99)
[2017-07-17 23:01] LABS: CHLORIDE 112 mEq/L (99-109); POTASSIUM 3.9 mEq/L (3.7-5.4); SODIUM 145 mEq/L (136-147)
[2017-07-17 23:02] LABS: GLUCOSE 198 mg/dL (70-99)
[2017-07-17 23:06] LABS: CREATININE 0.8 mg/dL (0.6-1.3); GFR ESTIMATE (CALCULATED) > 59 mL/min/ (58.99-99999)
[2017-07-17 23:07] LABS: UREA NITROGEN (BUN) 6 mg/dL (9-23)
[2017-07-18] VITALS (33 sets, daily range): BP systolic 81–173; BP diastolic 47–105
[2017-07-18 06:20] LABS: BASOPHIL (%) 0.3 % (0-1); EOSINOPHIL (%) 3.9 % (0-5); EOSINOPHIL COUNT 0.3 K/uL (0-0.3); HEMATOCRIT 27.5 % (38.0-50.0); HEMOGLOBIN 9.2 G/DL (12.5-16.6); IMMATURE GRANULOCYTE (%) 0.3 % (0.0-0.7); LYMPHOCYTE (%) 26.1 % (15-42); LYMPHOCYTE COUNT 1.9 K/uL (1.0-2.8); MCH 30.3 PG (29.0-34.0); MCHC 33.5 G/DL (30.0-36.0); MCV 90.5 FL (86-99); MONOCYTE (%) 5.2 % (3-12); MONOCYTE COUNT 0.4 K/uL (0-0.8); NEUTROPHIL (%) 64.2 % (45-76); NEUTROPHIL COUNT 4.7 K/uL (1.8-6.4); PLATELET COUNT 130 K/uL (156-360); RBC DIS.WIDTH-CV 14.6 % (11.8-14.6); RBC DIS.WIDTH-SD 48.9 % (39-53); RED BLOOD COUNT 3.04 M/uL (4.00-5.50); WHITE BLOOD COUNT 7.4 K/uL (4.1-10.2)
[2017-07-18 09:49] LABS: BASOPHIL (%) 0.2 % (0-1); EOSINOPHIL (%) 3.8 % (0-5); EOSINOPHIL COUNT 0.3 K/uL (0-0.3); HEMATOCRIT 24.9 % (38.0-50.0); HEMOGLOBIN 8.4 G/DL (12.5-16.6); IMMATURE GRANULOCYTE (%) 0.3 % (0.0-0.7); LYMPHOCYTE (%) 19.7 % (15-42); LYMPHOCYTE COUNT 1.3 K/uL (1.0-2.8); MCH 30.5 PG (29.0-34.0); MCHC 33.7 G/DL (30.0-36.0); MCV 90.5 FL (86-99); MONOCYTE (%) 5.2 % (3-12); MONOCYTE COUNT 0.3 K/uL (0-0.8); NEUTROPHIL (%) 70.8 % (45-76); NEUTROPHIL COUNT 4.7 K/uL (1.8-6.4); PLATELET COUNT 113 K/uL (156-360); RBC DIS.WIDTH-CV 14.6 % (11.8-14.6); RBC DIS.WIDTH-SD 49.1 % (39-53); RED BLOOD COUNT 2.75 M/uL (4.00-5.50); WHITE BLOOD COUNT 6.6 K/uL (4.1-10.2)
[2017-07-18 10:15] LABS: ALBUMIN 2.3 G/DL (3.2-4.8); ALKALINE PHOSPHATASE 47 IU/L (3-129); ALT (GPT) 13 IU/L (3-49); AST (GOT) 20 IU/L (2-34); CHLORIDE 109 MEQ/L (99-109); CREATININE 0.7 MG/DL (0.6-1.3); GFR ESTIMATE (CALCULATED) > 59 mL/min/ (58.99-99999); POTASSIUM 3.9 MEQ/L (3.7-5.4); SODIUM 142 MEQ/L (136-147); TOTAL BILIRUBIN 0.8 MG/DL (0.0-1.0); TOTAL PROTEIN 4.1 G/DL (6.4-8.3); UREA NITROGEN (BUN) 9 mg/dL (9-23)
[2017-07-18 10:43] LABS: GLUCOSE 305 mg/dL (70-99)
[2017-07-19] VITALS (19 sets, daily range): BP systolic 108–159; BP diastolic 58–104
[2017-07-19 10:32] LABS: BASE EXCESS 5.4 mEq/L (-3 to +3); BICARBONATE 30.5 mEq/L (22-26); CARBOXY HGB 1.5 % (0-5); COMMENTS - BLOOD GASES C+; METHEMOGLOBIN 1.4 % (0-1.5); PCO2 46 mm Hg (35-45); PO2 66 mm Hg (80-100); SITE RR; pH 7.43 (7.35-7.45)
[2017-07-19 10:33] LABS: DEVICE VENT; FI02 30 %; MODE SPON; PEEP 5 CM/H20; PRES. SUPPORT 10 CM/H2O; TIDAL VOLUME 593 ML; TOTAL RESP RATE 13 resp/min
[2017-07-20] VITALS (22 sets, daily range): BP systolic 105–147; BP diastolic 63–102
[2017-07-20 04:44] LABS: BASOPHIL (%) 0.1 % (0-1); EOSINOPHIL (%) 4.5 % (0-5); EOSINOPHIL COUNT 0.4 K/uL (0-0.3); HEMATOCRIT 22.4 % (38.0-50.0); HEMOGLOBIN 7.5 G/DL (12.5-16.6); IMMATURE GRANULOCYTE (%) 0.5 % (0.0-0.7); LYMPHOCYTE (%) 28.6 % (15-42); LYMPHOCYTE COUNT 2.3 K/uL (1.0-2.8); MCH 29.6 PG (29.0-34.0); MCHC 33.5 G/DL (30.0-36.0); MCV 88.5 FL (86-99); MONOCYTE (%) 7.2 % (3-12); MONOCYTE COUNT 0.6 K/uL (0-0.8); NEUTROPHIL (%) 59.1 % (45-76); NEUTROPHIL COUNT 4.8 K/uL (1.8-6.4); RBC DIS.WIDTH-CV 13.2 % (11.8-14.6); RBC DIS.WIDTH-SD 42.7 % (39-53); RED BLOOD COUNT 2.53 M/uL (4.00-5.50); WHITE BLOOD COUNT 8.1 K/uL (4.1-10.2)
[2017-07-20 04:51] LABS: PLATELET COUNT 187 K/uL (156-360)
[2017-07-20 04:58] LABS: CHLORIDE 101 mEq/L (99-109); POTASSIUM 3.2 mEq/L (3.7-5.4); SODIUM 139 mEq/L (136-147)
[2017-07-20 05:00] LABS: GLUCOSE 220 mg/dL (70-99)
[2017-07-20 05:03] LABS: CREATININE 0.8 mg/dL (0.6-1.3); GFR ESTIMATE (CALCULATED) > 59 mL/min/ (58.99-99999)
[2017-07-20 05:04] LABS: UREA NITROGEN (BUN) 11 mg/dL (9-23)
[2017-07-21] VITALS (18 sets, daily range): BP systolic 113–153; BP diastolic 69–106
[2017-07-21 10:56] LABS: BASOPHIL (%) 0 % (0-1); EOSINOPHIL (%) 6.9 % (0-5); EOSINOPHIL COUNT 0.4 K/uL (0-0.3); HEMATOCRIT 24.6 % (38.0-50.0); HEMOGLOBIN 8.4 G/DL (12.5-16.6); IMMATURE GRANULOCYTE (%) 0.7 % (0.0-0.7); LYMPHOCYTE (%) 29.3 % (15-42); LYMPHOCYTE COUNT 1.6 K/uL (1.0-2.8); MCHC 34.1 G/DL (30.0-36.0); MCV 87.9 FL (86-99); MONOCYTE (%) 8.9 % (3-12); MONOCYTE COUNT 0.5 K/uL (0-0.8); NEUTROPHIL (%) 54.2 % (45-76); RBC DIS.WIDTH-CV 13.1 % (11.8-14.6); RBC DIS.WIDTH-SD 42.2 % (39-53); WHITE BLOOD COUNT 5.5 K/uL (4.1-10.2)
[2017-07-21 11:02] LABS: PLATELET COUNT 245 K/uL (156-360)
[2017-07-21 11:26] LABS: ALBUMIN 2.8 G/DL (3.2-4.8); ALKALINE PHOSPHATASE 66 IU/L (3-129); ALT (GPT) 20 IU/L (3-49); CREATININE 0.8 MG/DL (0.6-1.3); GFR ESTIMATE (CALCULATED) > 59 mL/min/ (58.99-99999); PHOSPHORUS 2.7 mg/dL (2.5-4.9); SODIUM 134 MEQ/L (136-147); UREA NITROGEN (BUN) 13 mg/dL (9-23)
[2017-07-21 11:35] LABS: AST (GOT) 34 IU/L (2-34); CHLORIDE 98 MEQ/L (99-109); GLUCOSE 359 mg/dL (70-99); HIGH-SENS C-REACTIVE PROTEIN > 8.00 MG/DL (0.02-0.20); MAGNESIUM 1.6 mg/dl (1.3-2.7); TOTAL BILIRUBIN 0.5 MG/DL (0.0-1.0); TOTAL PROTEIN 5.4 G/DL (6.4-8.3)
[2017-07-22] VITALS (12 sets, daily range): BP systolic 111–154; BP diastolic 69–102
[2017-07-22 05:26] LABS: BASOPHIL (%) 0.3 % (0-1); EOSINOPHIL (%) 6.5 % (0-5); EOSINOPHIL COUNT 0.4 K/uL (0-0.3); HEMATOCRIT 26.2 % (38.0-50.0); IMMATURE GRANULOCYTE (%) 1.1 % (0.0-0.7); LYMPHOCYTE (%) 41.3 % (15-42); LYMPHOCYTE COUNT 2.6 K/uL (1.0-2.8); MCH 30.1 PG (29.0-34.0); MCHC 34.4 G/DL (30.0-36.0); MCV 87.6 FL (86-99); MONOCYTE (%) 11.5 % (3-12); MONOCYTE COUNT 0.7 K/uL (0-0.8); NEUTROPHIL (%) 39.3 % (45-76); NEUTROPHIL COUNT 2.4 K/uL (1.8-6.4); PLATELET COUNT 260 K/uL (156-360); RBC DIS.WIDTH-CV 13.1 % (11.8-14.6); RBC DIS.WIDTH-SD 41.1 % (39-53); RED BLOOD COUNT 2.99 M/uL (4.00-5.50); WHITE BLOOD COUNT 6.2 K/uL (4.1-10.2)
[2017-07-22 05:52] LABS: CHLORIDE 103 MEQ/L (99-109); GFR ESTIMATE (CALCULATED) > 59 mL/min/ (58.99-99999); MAGNESIUM 1.7 mg/dl (1.3-2.7); POTASSIUM 3.6 MEQ/L (3.7-5.4); SODIUM 139 MEQ/L (136-147); UREA NITROGEN (BUN) 15 mg/dL (9-23)
[2017-07-22 05:55] LABS: GLUCOSE 95 mg/dL (70-99); PHOSPHORUS 4.5 mg/dL (2.5-4.9)
[2017-07-23 01:12] VITALS: BP 153/88
[2017-07-23 06:19] LABS: CHLORIDE 104 MEQ/L (99-109); CREATININE 0.9 MG/DL (0.6-1.3); GFR ESTIMATE (CALCULATED) > 59 mL/min/ (58.99-99999); GLUCOSE 132 mg/dL (70-99); MAGNESIUM 1.7 mg/dl (1.3-2.7); PHOSPHORUS 4.9 mg/dL (2.5-4.9); POTASSIUM 3.9 MEQ/L (3.7-5.4); SODIUM 140 MEQ/L (136-147); UREA NITROGEN (BUN) 11 mg/dL (9-23)
[2017-07-23 06:37] LABS: BASOPHIL (%) 0.3 % (0-1); EOSINOPHIL (%) 5.1 % (0-5); EOSINOPHIL COUNT 0.3 K/uL (0-0.3); HEMATOCRIT 27.5 % (38.0-50.0); HEMOGLOBIN 9.1 G/DL (12.5-16.6); IMMATURE GRANULOCYTE (%) 1.6 % (0.0-0.7); LYMPHOCYTE (%) 34.7 % (15-42); LYMPHOCYTE COUNT 2.2 K/uL (1.0-2.8); MCH 29.3 PG (29.0-34.0); MCHC 33.1 G/DL (30.0-36.0); MCV 88.4 FL (86-99); MONOCYTE (%) 11.6 % (3-12); MONOCYTE COUNT 0.8 K/uL (0-0.8); NEUTROPHIL (%) 46.7 % (45-76); RBC DIS.WIDTH-CV 13.2 % (11.8-14.6); RBC DIS.WIDTH-SD 41.7 % (39-53); RED BLOOD COUNT 3.11 M/uL (4.00-5.50); WHITE BLOOD COUNT 6.5 K/uL (4.1-10.2)
[2017-07-23 06:41] LABS: PLATELET COUNT 353 K/uL (156-360)
[2017-07-23 08:06] VITALS: BP 130/77
[2017-07-23 16:17] VITALS: BP 129/87
[2017-07-24 00:25] VITALS: BP 112/63
[2017-07-24 04:00] VITALS: BP 125/78
[2017-07-24 07:12] LABS: CHLORIDE 106 MEQ/L (99-109); GFR ESTIMATE (CALCULATED) > 59 mL/min/ (58.99-99999); MAGNESIUM 1.8 mg/dl (1.3-2.7); PHOSPHORUS 4.7 mg/dL (2.5-4.9); POTASSIUM 4.5 MEQ/L (3.7-5.4); SODIUM 137 MEQ/L (136-147); UREA NITROGEN (BUN) 11 mg/dL (9-23)
[2017-07-24 07:14] LABS: GLUCOSE 64 mg/dL (70-99)
[2017-07-24 08:05] VITALS: BP 120/75
[2017-07-24 08:44] LABS: HEMATOCRIT 31.1 % (38.0-50.0); MCH 29.8 PG (29.0-34.0); MCHC 32.2 G/DL (30.0-36.0); RBC DIS.WIDTH-SD 45.1 % (39-53); RED BLOOD COUNT 3.36 M/uL (4.00-5.50); WHITE BLOOD COUNT 7.5 K/uL (4.1-10.2)
[2017-07-24 08:47] LABS: MCV 92.6 FL (86-99)
[2017-07-24 09:31] LABS: BASOPHIL (%) 0.8 % (0-1); BASOPHIL COUNT 0.1 K/uL (0-0.1); EOSINOPHIL (%) 5.7 % (0-5); EOSINOPHIL COUNT 0.4 K/uL (0-0.3); IMMATURE GRANULOCYTE (%) 2.4 % (0.0-0.7); LYMPHOCYTE (%) 35.3 % (15-42); LYMPHOCYTE COUNT 2.7 K/uL (1.0-2.8); MONOCYTE (%) 10.8 % (3-12); MONOCYTE COUNT 0.8 K/uL (0-0.8); NEUTROPHIL COUNT 3.4 K/uL (1.8-6.4); PLAT.SUFFICIENCY ADEQUATE; PLATELET COUNT 332 K/uL (156-360)
[2017-07-24] MEDS ORDERED: GABAPENTIN400 MG PO (14:52)
[2017-07-24] MEDS ORDERED: LEVEMIR100 UNIT/2 SC (14:52)
[2017-07-24] MEDS ORDERED: CLONAZEPAM0.5 MG PO (14:53)
[2017-07-24] MEDS ORDERED: TRAMADOL HCL50 MG PO (14:53)
[2017-07-24] MEDS ORDERED: TRAZODONE HCL50 MG PO (14:54)
[2017-07-24] MEDS ORDERED: INSULIN SYRING1 EA53 MC (14:55)
[2017-07-24] MEDS ORDERED: TEST STRIPS MC (14:55)
[2017-07-24] MEDS ORDERED: 1ST TIER UNILE1 EAC1 MC (14:55)
== END 2017-07-24 15:45 | disposition home or self-care (01) | DRG 853 ==
LOC: EME 10:40 → 4WEST 12:17 → EDOF 12:17 → ENRESERV 12:19 → 4WEST 15:54 → ENRESERV 07-22 09:43 → 5SOUTH 07-22 14:25
PROVIDERS: Emergency Medicine Emergency Medical Services; Hospitalist; Internal Medicine; Internal Medicine Critical Care Medicine; Obstetrics & Gynecology
DX: A41.9 Sepsis, unspecified organism (principal); R65.21 Severe sepsis with septic shock; E88.2 Lipomatosis, not elsewhere classified; G04.91 Myelitis, unspecified; N17.9 Acute kidney failure, unspecified; E10.10 Type 1 diabetes mellitus with ketoacidosis without coma; J96.00 Acute respiratory failure, unspecified whether with hypoxia or hypercapnia; I82.612 Acute embolism and thrombosis of superficial veins of left upper extremity; M48.04 Spinal stenosis, thoracic region; G43.909 Migraine, unspecified, not intractable, without status migrainosus; F17.200 Nicotine dependence, unspecified, uncomplicated; G40.909 Epilepsy, unspecified, not intractable, without status epilepticus; E10.39 Type 1 diabetes mellitus with other diabetic ophthalmic complication; H40.9 Unspecified glaucoma; E10.22 Type 1 diabetes mellitus with diabetic chronic kidney disease; N18.9 Chronic kidney disease, unspecified; E10.40 Type 1 diabetes mellitus with diabetic neuropathy, unspecified; F32.9 Major depressive disorder, single episode, unspecified; F41.1 Generalized anxiety disorder; F43.10 Post-traumatic stress disorder, unspecified; F13.10 Sedative, hypnotic or anxiolytic abuse, uncomplicated; F11.20 Opioid dependence, uncomplicated; G89.29 Other chronic pain; Z96.41 Presence of insulin pump (external) (internal); Z79.4 Long term (current) use of insulin; Z83.3 Family history of diabetes mellitus; Z91.19 Patient's noncompliance with other medical treatment and regimen; Z91.14 Patient's other noncompliance with medication regimen
CPT/HCPCS: 36600; 70450; 70553; 71045; 72020; 72156; 72157; 72158; 76000; 76700; 80048; 80048 91; 80053; 80074; 80202; 81003; 82010; 82533 91; 82803; 82948; 83605; 83735; 84100; 84145 90; 84439; 84443; 84484; 84999; 85025; 85025 91; 85027; 85610; 85730; 86141; 86618; 86713 90; 86780; 86850; 86900; 86901; 86920; 87040; 87070; 87075; 87205; 87389; 87449; 87502; 87641; 88304; 88311; 93005; 93306; 93971; 94002; 94003; 94010; 94640 76; 94760; 94799; 97530 GO; 99202; 99281; 99285; C1751; C9113; J1170; J1630; J1650; J1815; J1885; J1940; J2060; J2250; J2405; J2543; J2704; J3010; J3370; J7030; J7040; J7050; J7120; P9016; P9045

== ENCOUNTER 2017-07-29 16:41 | Emergency (ER) | payer OTHER ==
[~2017-07-29] VITALS: Ht 172.7 cm; Wt 72.7 kg
[~2017-07-29 16:41] MED LIST changes: +1ST TIER UNILE1 EAC1 MC; +CLONAZEPAM0.5 MG PO; +GABAPENTIN400 MG PO; +INSULIN SYRING1 EA53 MC; +LEVEMIR100 UNIT/2 SC; +TEST STRIPS MC
[2017-07-29 18:06] LABS: HEMATOCRIT 28.9 % (38.0-50.0); MCHC 34.6 G/DL (30.0-36.0); MCV 86.8 FL (86-99); PLATELET COUNT 482 K/uL (156-360); RBC DIS.WIDTH-CV 13.6 % (11.8-14.6); RBC DIS.WIDTH-SD 42.5 % (39-53); RED BLOOD COUNT 3.33 M/uL (4.00-5.50)
[2017-07-29 18:10] LABS: INTER. NORMALIZED RATIO 1.1
[2017-07-29 18:12] LABS: CHLORIDE 96 mEq/L (99-109); SODIUM 132 mEq/L (136-147)
[2017-07-29 18:14] LABS: GLUCOSE 391 mg/dL (70-99)
[2017-07-29 18:18] LABS: CREATININE 1.1 mg/dL (0.6-1.3); GFR ESTIMATE (CALCULATED) > 59 mL/min/ (58.99-99999)
[2017-07-29 18:19] LABS: UREA NITROGEN (BUN) 15 mg/dL (9-23)
[2017-07-29 18:32] LABS: SERUM ETHYL ALCOHOL < 10 mg/dL
[2017-07-29 21:05] VITALS: BP 129/91
== END 2017-07-29 21:05 | disposition home or self-care (01) ==
LOC: EME 16:41 → TRA 16:41
PROVIDERS: Family Medicine
DX: S06.0X9A Concussion with loss of consciousness of unspecified duration, initial encounter (principal); E11.65 Type 2 diabetes mellitus with hyperglycemia; Z79.4 Long term (current) use of insulin; Z96.41 Presence of insulin pump (external) (internal); Y08.09XA Assault by strike by other specified type of sport equipment, initial encounter; F17.200 Nicotine dependence, unspecified, uncomplicated
CPT/HCPCS: 70450; 80048; 82948; 85027; 85610; 93005; 99281; 99284; G0480; J3010; J7040

== ENCOUNTER 2017-08-03 00:13 | Emergency (ER) | payer OTHER ==
[~2017-08-03] VITALS: Ht 175.3 cm; Wt 74.1 kg
[2017-08-03 04:00] LABS: BASOPHIL (%) 1.5 % (0-1); BASOPHIL COUNT 0.1 K/uL (0-0.1); EOSINOPHIL (%) 3.2 % (0-5); EOSINOPHIL COUNT 0.3 K/uL (0-0.3); HEMATOCRIT 30.3 % (38.0-50.0); HEMOGLOBIN 10.2 G/DL (12.5-16.6); LYMPHOCYTE (%) 39.9 % (15-42); LYMPHOCYTE COUNT 3.2 K/uL (1.0-2.8); MCH 29.4 PG (29.0-34.0); MCHC 33.7 G/DL (30.0-36.0); MCV 87.3 FL (86-99); MONOCYTE (%) 6.3 % (3-12); MONOCYTE COUNT 0.5 K/uL (0-0.8); NEUTROPHIL (%) 48.1 % (45-76); NEUTROPHIL COUNT 3.8 K/uL (1.8-6.4); PLATELET COUNT 486 K/uL (156-360); RBC DIS.WIDTH-CV 13.4 % (11.8-14.6); RBC DIS.WIDTH-SD 42.7 % (39-53); RED BLOOD COUNT 3.47 M/uL (4.00-5.50); WHITE BLOOD COUNT 7.9 K/uL (4.1-10.2)
[2017-08-03 04:11] LABS: CHLORIDE 98 mEq/L (99-109); SODIUM 132 mEq/L (136-147)
[2017-08-03 04:12] LABS: POTASSIUM 4.9 mEq/L (3.7-5.4)
[2017-08-03 04:14] LABS: GLUCOSE 524 mg/dL (70-99)
[2017-08-03 04:16] LABS: CREATININE 1.1 mg/dL (0.6-1.3); GFR ESTIMATE (CALCULATED) > 59 mL/min/ (58.99-99999)
[2017-08-03 04:17] LABS: UREA NITROGEN (BUN) 17 mg/dL (9-23)
[2017-08-03 04:32] LABS: ERTH.SED.RATE 51 MM/HR (0-15)
[2017-08-03 04:32] LABS: APPEARANCE CLEAR ((CLEAR)); BILIRUBIN NEGATIVE; BLOOD NEGATIVE; COLOR YELLOW ((YELLOW)); GLUCOSE (STRIP) >=500; KETONES NEGATIVE; LEUKOCYTES NEGATIVE; NITRITE NEGATIVE; PROTEIN (STRIP) NEGATIVE; SPECIFIC GRAVITY 1.026 (1.000-1.030); UCUL ADDED? NO; UROBILINOGEN 0.2 MG/DL (0.2-1.0)
[2017-08-03 06:39] LABS: ALBUMIN 3.7 g/dL (3.2-4.8)
[2017-08-03 06:42] LABS: TOTAL PROTEIN 6.7 g/dL (6.4-8.3)
[2017-08-03 06:44] LABS: TOTAL BILIRUBIN 0.5 mg/dL (0.0-1.0)
[2017-08-03 06:45] LABS: ALKALINE PHOSPHATASE 141 IU/L (3-129)
[2017-08-03 06:47] LABS: AST (GOT) 21 IU/L (2-34); DIRECT BILIRUBIN 0.2 mg/dL (0.0-0.3)
[2017-08-03 06:48] LABS: ALT (GPT) 21 IU/L (3-49); LIPASE 69 U/L (1.0-51.0)
[2017-08-03 07:25] LABS: C-REACTIVE PROTEIN 7.3 MG/L (0-10)
[2017-08-03 11:19] VITALS: BP 133/83
== END 2017-08-03 11:30 | disposition home or self-care (01) ==
LOC: EME 00:13
PROVIDERS: Emergency Medicine
DX: M54.6 Pain in thoracic spine (principal); Z98.890 Other specified postprocedural states; F11.20 Opioid dependence, uncomplicated; E11.65 Type 2 diabetes mellitus with hyperglycemia; F17.200 Nicotine dependence, unspecified, uncomplicated; Z88.6 Allergy status to analgesic agent; Z88.5 Allergy status to narcotic agent; Z88.8 Allergy status to other drugs, medicaments and biological substances
CPT/HCPCS: 72070; 72157; 80048; 80076; 81003; 82010; 82800; 82948; 83605; 83690; 85025; 85651; 86140; J2270; J7120

== ENCOUNTER 2017-08-29 13:14 | Emergency (ER) | payer OTHER ==
[~2017-08-29] VITALS: Ht 175.3 cm; Wt 77.3 kg
[2017-08-29 14:26] LABS: HEMATOCRIT 38.1 % (38.0-50.0); HEMOGLOBIN 13.1 G/DL (12.5-16.6); MCH 29.2 PG (29.0-34.0); MCHC 34.4 G/DL (30.0-36.0); PLATELET COUNT 355 K/uL (156-360); RBC DIS.WIDTH-CV 12.9 % (11.8-14.6); RBC DIS.WIDTH-SD 39.8 % (39-53); RED BLOOD COUNT 4.48 M/uL (4.00-5.50); WHITE BLOOD COUNT 7.8 K/uL (4.1-10.2)
[2017-08-29 14:37] LABS: ALBUMIN 4.4 g/dL (3.2-4.8); CHLORIDE 103 mEq/L (99-109); POTASSIUM 3.9 mEq/L (3.7-5.4); SODIUM 140 mEq/L (136-147)
[2017-08-29 14:39] LABS: GLUCOSE 204 mg/dL (70-99)
[2017-08-29 14:41] LABS: TOTAL BILIRUBIN 0.5 mg/dL (0.0-1.0)
[2017-08-29 14:42] LABS: SERUM ETHYL ALCOHOL < 10 mg/dL
[2017-08-29 14:43] LABS: ALKALINE PHOSPHATASE 111 IU/L (3-129); CREATININE 1.1 mg/dL (0.6-1.3); GFR ESTIMATE (CALCULATED) > 59 mL/min/ (58.99-99999)
[2017-08-29 14:44] LABS: AST (GOT) 13 IU/L (2-34); UREA NITROGEN (BUN) 13 mg/dL (9-23)
[2017-08-29 14:46] LABS: ALT (GPT) 15 IU/L (3-49)
[2017-08-29 14:47] LABS: APPEARANCE CLEAR ((CLEAR)); BILIRUBIN NEGATIVE; BLOOD NEGATIVE; COLOR YELLOW ((YELLOW)); GLUCOSE (STRIP) >=500; KETONES NEGATIVE; LEUKOCYTES NEGATIVE; NITRITE NEGATIVE; PROTEIN (STRIP) 100; SPECIFIC GRAVITY 1.024 (1.000-1.030); UROBILINOGEN 0.2 MG/DL (0.2-1.0)
[2017-08-29 14:50] LABS: BACTERIA NONE SEEN /HPF; EPITHELIAL CELLS RARE /HPF; HYALINE CASTS 0-5 /LPF; MUCUS NONE SEEN /LPF; RED BLOOD CELLS 0-5 /HPF (0-5); UCUL ADDED? NO; WHITE BLOOD CELLS 0-5 /HPF (0-5)
[2017-08-29 14:56] LABS: AMPHETAMINE NEGATIVE (500 ng/mL); BARBITURATES NEGATIVE (200 ng/mL); BENZODIAZEPINES NEGATIVE (150 ng/mL); BUPRENORPHINE NEGATIVE (10 ng/mL); COCAINE NEGATIVE (150 ng/mL); METHADONE NEGATIVE (200 ng/mL); METHAMPHETAMINE NEGATIVE (500 ng/mL); OPIATES (MORPHINE) NEGATIVE (100 ng/mL); OXYCODONE NEGATIVE (100 ng/mL); PHENCYCLIDINE NEGATIVE (25 ng/mL); PROPOXYPHENE NEGATIVE (300 ng/mL); THC CANNABINOIDS PRESUMPTIVE POSITIVE (50 ng/mL); TRICYCLIC ANTIDEPRESSANTS NEGATIVE (300 ng/mL)
[2017-08-30] MEDS ORDERED: OXYCONTIN15 MG PO (09:38)
[2017-08-30] MEDS ORDERED: WELLBUTRIN XL300 MG PO (09:38)
[2017-08-30] MEDS ORDERED: MINIPRESS1 MG PO (09:39)
[2017-08-30] MEDS ORDERED: MINIPRESS2 MG PO (09:39)
[2017-08-30 11:50] VITALS: BP 100/62
== END 2017-08-30 11:51 ==
LOC: EME 13:14
PROVIDERS: Emergency Medicine
DX: R45.851 Suicidal ideations (principal); F32.9 Major depressive disorder, single episode, unspecified; E11.65 Type 2 diabetes mellitus with hyperglycemia; F43.10 Post-traumatic stress disorder, unspecified; F41.1 Generalized anxiety disorder; Z04.6 Encounter for general psychiatric examination, requested by authority; F11.20 Opioid dependence, uncomplicated; F12.20 Cannabis dependence, uncomplicated; Z72.0 Tobacco use; Z88.5 Allergy status to narcotic agent; Z88.6 Allergy status to analgesic agent
CPT/HCPCS: 80053; 81003; 82948; 84999; 85027; 90837; 99281; 99285; G0480